=== PATIENT | female | born 1955 | race African-American/Black ===

== ENCOUNTER 2017-05-03 17:36 | Inpatient (IN) | payer MEDICARE ==
[~2017-05-03] VITALS: Ht 165.1 cm; Wt 104.5 kg
--- NOTE | 2017-05-03 18:03 | EKG ---
[address] [address] Test Date: 2017-05-03 Test Time: 17:53:24 Pat Name: SABIHA TOSCANO Department: Room: Gender: F Knot Bumper: KYLAH : 1955 Requested By: JAZZMINE DURÁN Order Number: [id number] Reading MD: Car Marrufo MD Measurements Intervals [place] Rate: 75 P: 36 GA: 150 QRS: 1 QRSD: 82 T: -8 QT: 346 QTc: 389 Interpretive Statements SINUS RHYTHM NON-SPECIFIC ST/T CHANGES Electronically Signed On 05-12-2017 16:06:34 ICE GRINDER by Car Marrufo MD
--- NOTE | 2017-05-03 18:15 | PHYS DOC ---
General Chief Complaint: PSYCH EVALUATION Stated Complaint: PSYCH EVALUATION Time Seen by MD: 18:11 Source: patient, shelter records Exam Limitations: clinical condition Problems: History of Present Illness Initial Comments Patient is a 61-year-old female brought to the ED from [facility] in [place] via facility transport for medical clearance and [facility] admission. Patient has been previously accepted by Dr. Cassidy for major depressive disorder with psychosis. Patient is full code Facility records indicate that the patient has had escalating aggressive behavior with screaming episodes, crying uncontrollably, and refusing medications. She reportedly has history of major depressive disorder and pseudobulbar affect the symptoms have been ongoing for the past 2 weeks and medication adjustments have been ineffective. The patient has received inpatient psychiatric treatment by her primary care physician but there is no reported record of prior [facility] admission. Patient reports that she's been brought here because she doesn't like the medications she's been given and has been refusing to take them. She denies suicidal or homicidal ideation and is for the most part cooperative in the emergency department. She is alert and oriented in general but does have periods of confusion. She becomes impatient and after a time Jorge Luis following instructions continuously wanting to try to get up and get out of bed. Timing/Duration: other Severity: severe Modifying Factors: improves with other Associated Symptoms: denies symptoms Allergies: Coded Allergies: No Known Drug Allergies (Unverified , 05/03/17) Past Medical History Medical History: other (CVA with hemiplegia and hemiparesis, fall risk, dysphasia, hypertension, GERD, vitamin D deficiency, obesity, hyperlipidemia, major depressive disorder, anxiety, pseudo-bulbar affect, dementia, neuropathy, chronic pain, chronic kidney disease, incontinence, menopause, difficulty walking,) Surgical History: other Social History Smoker: non-smoker Alcohol: none Drugs: none Review of Systems Constitutional: denies diaphoresis, denies fever EENTM: denies throat swelling, denies mouth swelling Respiratory: denies cough, denies shortness of breath Cardiovascular: denies chest pain, denies syncope Gastrointestinal: denies abdominal pain, denies vomiting Musculoskeletal: denies joint swelling, denies neck pain Psychiatric/Neurological: see HPI Physical Exam General Appearance: no apparent distress, obese Ear, Nose, Throat: hearing grossly normal, normal ENT inspection Neck: non-tender, supple Respiratory: normal breath sounds, no respiratory distress Cardiovascular: normal peripheral pulses, regular rate, rhythm Gastrointestinal: non tender, soft Back: no CVA tenderness, no vertebral tenderness Neurologic/Psychiatric: alert (with periods of confusion), depressed affect ( no lateralizing neuro deficits denies suicidal or homicidal ideation) Orders, Labs, Meds EKG: Normal sinus rhythm 75 bpm, generalized flattening of the T waves no STEMI changes. Interpreted by Dr. De Jesus. ED blood pressure 150/72 patient denies chest pain dyspnea or other related symptoms. She is medically cleared for [facility] admission with unremarkable labs and urine results, her valproic acid is therapeutic 66. Prolonged ED course due to EMS availability. Departure Time of Disposition: 20:10 Disposition: 09 ADMITTED INPATIENT Diagnosis: MDD with psychosis, CKD Condition: STABLE Additional Instructions: [facility] admission Dr Cassidy is accepting. JAZZMINE DE JESUS DO May 03, 2017 18:15
[2017-05-03 18:46] LABS: BASO % 1 % (0-3); EOS # 0.1 x10^3/uL (0.0-0.7); EOS % 3 % (0-3); HEMATOCRIT 37.4 % (36.0-47.0); HEMOGLOBIN 12.4 g/dL (12.0-15.5); LYMPH # 1.1 x10^3/uL (1.0-4.8); LYMPH % 30 % (24-48); MEAN CORPUSCULAR HEMOGLOBIN 28 pg (25-35); MEAN CORPUSCULAR HGB CONC 33 g/dL (31-37); MEAN CORPUSCULAR VOLUME 84 fL (79-100); MONO # 0.4 x10^3/uL (0.0-1.1); MONO % 11 % (0-9); NEUT # 1.9 x10^3uL (1.8-7.7); NEUT % 55 % (31-73); PLATELET COUNT 168 x10^3/uL (140-400); RED BLOOD COUNT 4.44 x10^6/uL (3.50-5.40); RED CELL DISTRIBUTION WIDTH 14.3 % (11.5-14.5); WHITE BLOOD COUNT 3.5 x10^3/uL (4.0-11.0)
[2017-05-03 18:54] LABS: BACTERIA,URINE 0 /HPF (0-FEW); BILIRUBIN,URINE NEG (NEG); CLARITY,URINE CLEAR; COLOR,URINE YELLOW; GLUCOSE,URINE NEG (NEG); HYALINE CASTS, URINE OCC /HPF; NITRITE,URINE NEG (NEG); RBC,URINE OCC /HPF (0-2); UROBILINOGEN,URINE 1 mg/dL (0.2 mg/dL); WBC,URINE OCC /HPF (0-4)
[2017-05-03 18:58] LABS: VAL ACID 66 mcg/mL (50-100)
[2017-05-03 18:59] LABS: ALBUMIN 3.4 g/dL (3.4-5.0); ALBUMIN/GLOBULIN RATIO 0.8 (1.0-1.7); CALCIUM 9.4 mg/dL (8.5-10.1); CREATININE 1.7 mg/dL (0.6-1.0); GFR 36.7; MAGNESIUM 1.8 mg/dL (1.8-2.4); TOTAL BILIRUBIN 0.2 mg/dL (0.2-1.0); TOTAL PROTEIN 7.6 g/dL (6.4-8.2)
[2017-05-03] MEDS ORDERED: GABA-585 PO (21:10)
[2017-05-03] MEDS ORDERED: CLON0.5T3 PO (21:10)
[2017-05-03] MEDS ORDERED: CHOL10003 PO (21:10)
[2017-05-03] MEDS ORDERED: VALP250S PO (21:10)
[2017-05-03] MEDS ORDERED: DEXT1CAP PO (21:10)
[2017-05-03] MEDS ORDERED: DONE5TAB56 PO (21:10)
[2017-05-03] MEDS ORDERED: ASPI81TA50 PO (21:10)
[2017-05-03] MEDS ORDERED: FURO20TA3 PO (21:10)
[2017-05-03] MEDS ORDERED: LISI-334 PO (21:10)
[2017-05-03] MEDS ORDERED: CALC-380 PO (21:10)
[2017-05-03] MEDS ORDERED: PRAV40TA2 PO (21:10)
[2017-05-03] MEDS ORDERED: HYDR-2867 PO (21:10)
[2017-05-03] MEDS ORDERED: CLOP75TA PO (21:10)
[2017-05-03] MEDS ORDERED: LABE300T PO (21:10)
[2017-05-03] MEDS ORDERED: MIRT15TA3 PO (21:10)
[2017-05-03 23:24] VITALS: BP 160/98
[2017-05-03] MEDS ORDERED: MAGNESIUM HYDROXIDE 2,400 MG/30 ML ORAL.SUSP. PO PRN (23:30)
[2017-05-03] MEDS ORDERED: ACETAMINOPHEN 325 MG TABLET PO PRN (23:30)
[2017-05-03] MEDS ORDERED: METHYL SALICYLATE/MENTHOL TOPICAL OINTMENT 29GM TUBE. TP PRN (23:30)
[2017-05-03] MEDS ORDERED: MAG HYDROX/AL HYDROX/SIMETH 30 ML ORAL.SUSP PO PRN (23:30)
[2017-05-04] MEDS ORDERED: LISINOPRIL 20 MG TABLET PO PRN
[2017-05-04 06:22] VITALS: BP 132/87
[2017-05-04] MEDS: CALCIUM CARB/VIT D3 500/200 TABLET PO SCH ×3 (08:00→16:13)
[2017-05-04] MEDS: ASPIRIN ENTERIC COATED 81 MG TABLET.DR. PO SCH (08:31)
[2017-05-04] MEDS: hydrALAZINE 10 MG TABLET PO SCH ×3 (08:31→19:08)
[2017-05-04] MEDS: DONEPEZIL HCL 5 MG TABLET. PO SCH (08:31)
[2017-05-04] MEDS: CLOPIDOGREL BISULFATE 75 MG TABLET PO SCH (08:31)
[2017-05-04] MEDS: CHOLECALCIFEROL (VITAMIN D3) 1,000 UNIT TABLET PO SCH (08:31)
[2017-05-04] MEDS: FUROSEMIDE 20 MG TABLET PO SCH (08:31)
[2017-05-04] MEDS: VALPROATE ACID 250 MG/5 ML ORAL SOLUTION PO SCH ×2 (08:32→19:08)
[2017-05-04] MEDS: GABAPENTIN 100 MG CAPSULE. PO SCH ×3 (08:32→19:08)
[2017-05-04] MEDS: LABETALOL HCL 100 MG TABLET PO SCH ×3 (08:49→19:11)
[2017-05-04] MEDS: DEXTROMETHORPHAN/QUINIDINE 20/10MG CAPSULE. PO SCH ×2 (08:49→19:10)
[2017-05-04] MEDS ORDERED: clonazePAM 0.5 MG TABLET PO SCH (09:00)
[2017-05-04 15:51] LABS: THYROID STIM HORMONE (TSH) 1.546 uIU/mL (0.358-3.740)
[2017-05-04 16:28] VITALS: BP 119/73
[2017-05-04] MEDS: ATORVASTATIN CALCIUM 10 MG TABLET. PO SCH (19:38)
[2017-05-04] MEDS: MIRTAZAPINE 15 MG TABLET PO SCH (19:39)
--- NOTE | 2017-05-04 21:09 | PDOC ---
Exam Note: Jimmie Note: Please also refer to the separate dictated note~for this date of service dictated separately.~Patient seen individually. Discussed the patient with Nursing staff reviewed the chart.~Reviewed interim history and current functioning. Reviewed vital signs,~Labs/ Radiology~and current medications noted below. Continue current treatment with the changes noted in the dictated addendum note Assessment: Vital Signs: Vital Signs Date Time Temp Pulse Resp B/P (MAP) Pulse Ox O2 Delivery O2 Flow Rate FiO2 05/04/17 19:11 73 119/73 05/04/17 16:28 98.9 18 96 Room Air I&O Intake and Output 05/04/17 07:00 Intake Total 120 ml Output Total 1 ml Balance 119 ml Intake Oral 120 ml Output Stool Total 1 ml # Voids 1 # Bowel Movements 1 Current Medications: Meds: Current Medications Acetaminophen (Tylenol) 650 mg PRN Q6HRS PRN PO PAIN / TEMP; Start 05/03/17 at 23:30 Multi-Ingredient Ointment (Analgesic [place]) 1 anaya PRN QID PRN TP MUSCLE PAIN; Start 05/03/17 at 23:30 Al Hydroxide/Mg Hydroxide (Mylanta Plus Xs) 15 ml PRN AFTMEALHC PRN PO DYSPEPSIA; Start 05/03/17 at 23:30 Magnesium Hydroxide (Milk Of Magnesia) 2,400 mg PRN QHS PRN PO CONSTIPATION; Start 05/03/17 at 23:30 Clonazepam (KlonoPIN) 0.5 mg DAILY PO Last administered on 05/04/17 08:31; Start 05/04/17 at 09:00; Stop 05/04/17 at 18:37; Status DC Donepezil HCl (Aricept) 5 mg DAILY PO Last administered on 05/04/17 08:31; Start 05/04/17 at 09:00 Mirtazapine (Remeron) 15 mg QHS PO Last administered on 05/04/17 19:39; Start 05/04/17 at 21:00 Valproic Acid (Depakene) 250 mg BID PO Last administered on 05/04/17 19:08; Start 05/04/17 at 09:00 Aspirin (Aspirin Enteric Coated) 81 mg DAILY PO Last administered on 05/04/17 08:31; Start 05/04/17 at 09:00 Vitamin D (Vitamin D3) 1,000 unit DAILY PO Last administered on 05/04/17 08:31 ; Start 05/04/17 at 09:00 Clopidogrel Bisulfate (Plavix) 75 mg DAILY PO Last administered on 05/04/17 08 :31; Start 05/04/17 at 09:00 Furosemide (Lasix) 20 mg DAILY PO Last administered on 05/04/17 08:31; Start 05/04/17 at 09:00 Gabapentin (Neurontin) 100 mg TID PO Last administered on 05/04/17 19:08; Start 05/04/17 at 09:00 Hydralazine HCl (Apresoline) 10 mg TID PO Last administered on 05/04/17 19:08 ; Start 05/04/17 at 09:00 Lisinopril (Prinivil) 20 mg PRN DAILY PRN PO HYPERTENSION, SEE COMMENTS; Start 05/04/17 at 00:00 Calcium/Vitamin D (Oscal D 500mg/ 200uts) 1 tab BIDWMEALS PO Last administered on 05/04/17 16:13; Start 05/04/17 at 08:00 Labetalol HCl (Trandate) 300 mg TID PO Last administered on 05/04/17 19:11; Start 05/04/17 at 09:00 Atorvastatin Calcium (Lipitor) 10 mg HS PO Last administered on 05/04/17 19:38 ; Start 05/04/17 at 21:00 Clonazepam (KlonoPIN) 0.25 mg DAILY PO ; Start 05/05/17 at 09:00; Stop 05/07/17 at 13:00 Quetiapine Fumarate (SEROquel) 12.5 mg BID@0900,1400 PO ; Start 05/05/17 at 09: 00 Active Scripts Active Reported Labetalol Hcl 300 Mg Tablet 300 Mg PO TID Hydralazine Hcl 10 Mg Tablet 10 Mg PO TID Gabapentin 100 Mg Capsule 100 Mg PO TID Oystercal-D 500 Mg-400 Unit Tb (Calcium Carbonate/Vitamin D3) 1 Each Tablet 1 Each PO BID Nuedexta 20-10 Mg Capsule (Dextromethorphan Hbr/Quinidine) 1 Each Capsule 1 Each PO BID Depakene (Valproate Sodium) 250 Mg/5 Ml Solution 250 Mg PO BID Pravastatin Sodium 40 Mg Tablet 40 Mg PO DAILY Mirtazapine 15 Mg Tablet 15 Mg PO QHS Lisinopril 20 Mg Tablet 20 Mg PO DAILY PRN Furosemide 20 Mg Tablet 20 Mg PO DAILY Clopidogrel (Clopidogrel Bisulfate) 75 Mg Tablet 75 Mg PO DAILY Clonazepam 0.5 Mg Tablet 0.5 Mg PO DAILY Vitamin D3 (Cholecalciferol (Vitamin D3)) 1,000 Unit Tablet 1,000 Unit PO DAILY Aspir-Low (Aspirin) 81 Mg Tablet.dr 81 Mg PO DAILY Aricept (Donepezil Hcl) 5 Mg Tablet 5 Mg PO DAILY I have reviewed the current psychotropics carefully including drug interactions. Risk benefit ratio favors no change other than as noted in my dictated progress note. Diagnosis: Problems: (1) Major depressive disorder with psychotic features ALESIA INFANTE MD May 04, 2017 21:09
--- NOTE | 2017-05-05 00:20 | HP ---
ADMIT DATE: 05/04/2017 This note covers elements not covered in my initial note of 05/04/2017. IDENTIFYING DATA: The patient is a 61-year-old female referred to us from [facility] by Dr. Keo Morgan, her primary care physician, on account of "escalating behavior. She has been screaming, crying, refusing medications, depressed, also had pseudobulbar affect. She is on Aricept, even though the dementia is not a diagnosis." The patient has been agitated, disruptive, aggressive, verbally abusive at the snf, has failed outpatient psychiatric interventions over the past 2 weeks, referred for inpatient psychiatric stabilization. CHIEF COMPLAINT: "I get too many medications. I wouldn't take it." HISTORY OF PRESENT ILLNESS: The patient has a history of depression, anger, irritability. She has had sleep and appetite changes, and over the past 2 weeks as noted, she has had explosive outbursts, verbally screaming, crying, refusing medications. No active psychotic symptoms, suicidal or homicidal ideation. No clear history of bipolar disorder. PAST PSYCHIATRIC HISTORY: Positive for mild cognitive impairment versus major neurocognitive disorder, early vascular with depression. PAST MEDICAL HISTORY: Status post CVA, chronic kidney disease. FAMILY HISTORY: Noncontributory. DRUG ALLERGIES: Negative. CODE STATUS: Full code. Diet regular. Ambulates with wheelchair 1 or 2 for transfers, has hemiplegia, paresis from CVA. CURRENT PSYCHOTROPICS: Klonopin 0.5 mg daily, Aricept 5 mg a day, Depakene 250 mg b.i.d., Remeron 15 mg at bedtime, Nuedexta 20/10 one p.o. b.i.d. FAMILY HISTORY: Noncontributory. SOCIAL HISTORY: No history of alcohol or drug abuse, physical, sexual or elder abuse. She is not known to be a perpetrator. 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 REVIEW OF SYSTEMS: Ambulation impaired, in wheelchair. No CV, , pulmonary, eye, ENT system symptoms on review. MENTAL STATUS EXAMINATION: Oriented to herself. Insight, judgment, recent memory is impaired. Language function intact. She felt it was 14/05/2000, but knew she arrived here last evening. Attention span short. Language function intact. Mood and affect anxious, labile, somewhat impulsive. LABORATORY DATA: Reviewed. IMPRESSION: Major depressive disorder, recurrent, impulse control disorder, anxiety disorder, unspecified, mild cognitive impairment versus major neurocognitive disorder, early vascular with depression. Rest diagnoses as above. PLAN: Admit to geropsychiatry unit at [facility]. I will see the patient daily individually from a psychiatric standpoint. Medical followup per Dr. Medina/Dr. Gerard. Taper and stop the Klonopin down to 0.25 mg once a day for 2 days and stop it. Start her on Seroquel 12.5 mg 9:00 a.m. and 2:00 p.m. as a mood stabilizer. Continue Depakene 250 b.i.d., level is therapeutic at 66. Maintain Aricept 5 mg a day, Nuedexta 20/10 b.i.d., Remeron 15 mg at bedtime. Make further adjustments as clinically indicated. ALESIA INFANTE MD DR: VELIA/lico JOB#: [id number] / [id number]
--- NOTE | 2017-05-05 04:57 | CONS ---
DATE OF CONSULTATION: 05/04/2017 REASON FOR CONSULTATION: Medical management. HISTORY OF PRESENT ILLNESS: The patient is a 61-year-old -[place] female patient, a resident at [facility] in [place] and who was basically evaluated in the Emergency Room of [facility] for medical clearance and was admitted to [facility] for inpatient psychiatric stabilization. She apparently has major depressive disorder with psychosis and according to the nursing staff at the facility, the patient has been escalating aggressive behavior with screaming episodes, crying uncontrollably and refusing medication. She reportedly has history of major depressive disorder and pseudobulbar palsy with pseudobulbar affect. The symptoms have been ongoing for the past 2 weeks and medication adjustments have been ineffective. She apparently was seen by her primary care physician without much improvement and therefore she was admitted to this facility for inpatient psychiatric stabilization. When I questioned her, she stated that she is getting too many medication and that makes her very dizzy. PAST MEDICAL HISTORY: Significant for hypertension, left middle cerebral artery territory infarct with right-sided hemiplegia, gastroesophageal reflux disease, vitamin D deficiency, obesity, hyperlipidemia, pseudobulbar affect, chronic kidney disease, chronic pain syndrome, difficulty walking. PAST SURGICAL HISTORY: Significant for bilateral total knee arthroplasty. PAST PSYCHIATRIC HISTORY: Significant for major depressive disorder, anxiety, dementia and pseudobulbar affect. FAMILY HISTORY: Unremarkable. SOCIAL HISTORY: She lives according to her I am not sure how reliable this is with her in the same [facility] facility. She does not smoke, drink alcohol or use recreational drugs. 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 ALLERGIES: She has no known drug allergies. MEDICATIONS: She is currently on the following medications: Aspirin 81 mg once a day, calcium carbonate with vitamin D one tablet twice a day, cholecalciferol 1000 international units once a day, clonazepam 0.5 mg daily, Plavix 75 mg once a day, dextromethorphan/quinidine for Nuedexta one capsule twice a day, Aricept 5 mg daily, furosemide 20 mg once a day, gabapentin 100 mg 3 times a day. She is on hydralazine 10 mg 3 times a day, labetalol 300 mg 3 times a day, lisinopril 20 mg once a day, mirtazapine 15 mg at bedtime, pravastatin 40 mg at bedtime and valproic acid 250 mg twice a day. PHYSICAL EXAMINATION: GENERAL: When I examined her, the patient was sitting comfortably in her wheelchair, in no apparent respiratory distress, no pallor, jaundice or cyanosis. No lymphadenopathy, no thyromegaly. No jugular venous distension. Mild bilateral limb edema. VITAL SIGNS: Her heart rate was 72, blood pressure was 114/76, temperature was 97.6, respiratory rate 20 and oxygen saturation was 94% on room air. HEENT: Showed normocephalic, atraumatic. NECK: Supple. HEART: Showed normal first and second heart sounds. No gallop, rub or murmur. CHEST: Clear to auscultation. No crepitation or rhonchi. ABDOMEN: Distended, soft, nontender. NEUROLOGIC: She was awake, alert, responding appropriately. Cranial nerves intact. She has right-sided hemiparesis. She is mostly wheelchair bound. LABORATORY DATA: On admission showed serum sodium of 145, potassium 4, chloride 108, bicarbonate 30, anion gap of 7, BUN 30, creatinine 1.7. Estimated GFR was 36.7 mL per minute. Her glucose was 83, calcium was 9.4, magnesium was 1.8. Total bilirubin, AST, ALT, alkaline phosphatase were normal. Total protein was 7.6, albumin 3.4. Her white cell count was 3500, hemoglobin 12.4, hematocrit of 37.4, MCV 84 and platelet count of 168,000. Her urinalysis showed the urine was yellow, clear with a pH of 5.5, specific gravity of 1.025. The urine was negative for protein, glucose, ketones, blood, nitrite and leukocyte esterase. There was occasional rbc's, occasional wbc's, no bacteria. Her urine toxicology screen showed that her valproic acid was 66 mcg, which is well within therapeutic range. IMPRESSION: In summary, this is a 61-year-old -[place] female patient with multiple medical problems including hypertension, hyperlipidemia, pseudobulbar affect. She is also known to have chronic kidney disease, peripheral neuropathy, difficulty walking. She has right-sided hemiparesis. She is mostly bedbound, wheelchair bound. She was apparently admitted as she started having escalating aggressive behavior with screaming episodes, crying uncontrollably and refusing medication and she is known to have major depressive disorder with pseudobulbar affect and these symptoms has been going on for the last 2 weeks despite adjustment of her medication. From a medical point of view, she seemed to be stable and we could adjust some medication and eliminate some of them if necessary if that is the reason for her aggressive behavior and refusal of medications. Thank you, Dr. Cassidy for allowing me to participate in the care of this patient. JENNIFER SCHRADER MD DR: GUILLERMO/lico JOB#: [id number] / [id number]
[2017-05-05 05:49] VITALS: BP 168/63
[2017-05-05] MEDS: CLOPIDOGREL BISULFATE 75 MG TABLET PO SCH (08:47)
[2017-05-05] MEDS: CALCIUM CARB/VIT D3 500/200 TABLET PO SCH ×2 (08:47→13:32)
[2017-05-05] MEDS: DONEPEZIL HCL 5 MG TABLET. PO SCH (08:47)
[2017-05-05] MEDS: ASPIRIN ENTERIC COATED 81 MG TABLET.DR. PO SCH (08:47)
[2017-05-05] MEDS: CHOLECALCIFEROL (VITAMIN D3) 1,000 UNIT TABLET PO SCH (08:47)
[2017-05-05] MEDS: FUROSEMIDE 20 MG TABLET PO SCH (08:47)
[2017-05-05] MEDS: GABAPENTIN 100 MG CAPSULE. PO SCH ×3 (08:47→19:37)
[2017-05-05] MEDS: hydrALAZINE 10 MG TABLET PO SCH ×3 (08:47→19:37)
[2017-05-05] MEDS: VALPROATE ACID 250 MG/5 ML ORAL SOLUTION PO SCH ×2 (08:48→19:36)
[2017-05-05] MEDS: QUEtiapine 25 MG TABLET. PO SCH ×2 (08:49→13:32)
[2017-05-05] MEDS: LABETALOL HCL 100 MG TABLET PO SCH ×3 (08:49→19:37)
[2017-05-05] MEDS: DEXTROMETHORPHAN/QUINIDINE 20/10MG CAPSULE. PO SCH ×2 (08:49→19:38)
[2017-05-05] MEDS: clonazePAM 0.5 MG TABLET PO SCH (08:53)
[2017-05-05 16:32] VITALS: BP 130/64
[2017-05-05 19:26] VITALS: BP 133/79
[2017-05-05] MEDS: ATORVASTATIN CALCIUM 10 MG TABLET. PO SCH (19:37)
[2017-05-05] MEDS: MIRTAZAPINE 15 MG TABLET PO SCH (19:38)
--- NOTE | 2017-05-05 19:54 | PDOC ---
Exam Note: Jimmie Note: Please also refer to the separate dictated note~for this date of service dictated separately.~Patient seen individually. Discussed the patient with Nursing staff reviewed the chart.~Reviewed interim history and current functioning. Reviewed vital signs,~Labs/ Radiology~and current medications noted below. Continue current treatment with the changes noted in the dictated addendum note Assessment: Vital Signs: Vital Signs Date Time Temp Pulse Resp B/P (MAP) Pulse Ox O2 Delivery O2 Flow Rate FiO2 05/05/17 19:37 86 133/79 05/05/17 19:26 97 05/05/17 16:32 97.2 16 05/05/17 05:49 Room Air I&O Intake and Output 05/05/17 07:00 Intake Total 1440 ml Balance 1440 ml Intake Oral 1440 ml # Voids 1 # Bowel Movements 1 Current Medications: Meds: Current Medications Acetaminophen (Tylenol) 650 mg PRN Q6HRS PRN PO PAIN / TEMP; Start 05/03/17 at 23:30 Multi-Ingredient Ointment (Analgesic [place]) 1 anaya PRN QID PRN TP MUSCLE PAIN; Start 05/03/17 at 23:30 Al Hydroxide/Mg Hydroxide (Mylanta Plus Xs) 15 ml PRN AFTMEALHC PRN PO DYSPEPSIA; Start 05/03/17 at 23:30 Magnesium Hydroxide (Milk Of Magnesia) 2,400 mg PRN QHS PRN PO CONSTIPATION; Start 05/03/17 at 23:30 Clonazepam (KlonoPIN) 0.5 mg DAILY PO Last administered on 05/04/17 08:31; Start 05/04/17 at 09:00; Stop 05/04/17 at 18:37; Status DC Donepezil HCl (Aricept) 5 mg DAILY PO Last administered on 05/05/17 08:47; Start 05/04/17 at 09:00 Mirtazapine (Remeron) 15 mg QHS PO Last administered on 05/05/17 19:38; Start 05/04/17 at 21:00 Valproic Acid (Depakene) 250 mg BID PO Last administered on 05/05/17 19:36; Start 05/04/17 at 09:00 Aspirin (Aspirin Enteric Coated) 81 mg DAILY PO Last administered on 05/05/17 08:47; Start 05/04/17 at 09:00 Vitamin D (Vitamin D3) 1,000 unit DAILY PO Last administered on 05/05/17 08:47 ; Start 05/04/17 at 09:00 Clopidogrel Bisulfate (Plavix) 75 mg DAILY PO Last administered on 05/05/17 08 :47; Start 05/04/17 at 09:00 Furosemide (Lasix) 20 mg DAILY PO Last administered on 05/05/17 08:47; Start 05/04/17 at 09:00 Gabapentin (Neurontin) 100 mg TID PO Last administered on 05/05/17 19:37; Start 05/04/17 at 09:00 Hydralazine HCl (Apresoline) 10 mg TID PO Last administered on 05/05/17 19:37 ; Start 05/04/17 at 09:00 Lisinopril (Prinivil) 20 mg PRN DAILY PRN PO HYPERTENSION, SEE COMMENTS; Start 05/04/17 at 00:00 Calcium/Vitamin D (Oscal D 500mg/ 200uts) 1 tab BIDWMEALS PO Last administered on 05/05/17 13:32; Start 05/04/17 at 08:00 Labetalol HCl (Trandate) 300 mg TID PO Last administered on 05/05/17 19:37; Start 05/04/17 at 09:00 Atorvastatin Calcium (Lipitor) 10 mg HS PO Last administered on 05/05/17 19:37 ; Start 05/04/17 at 21:00 Clonazepam (KlonoPIN) 0.25 mg DAILY PO Last administered on 05/05/17 08:53; Start 05/05/17 at 09:00; Stop 05/07/17 at 13:00 Quetiapine Fumarate (SEROquel) 12.5 mg BID@0900,1400 PO Last administered on 13:32; Start 05/05/17 at 09:00 Active Scripts Active Reported Labetalol Hcl 300 Mg Tablet 300 Mg PO TID Hydralazine Hcl 10 Mg Tablet 10 Mg PO TID Gabapentin 100 Mg Capsule 100 Mg PO TID Oystercal-D 500 Mg-400 Unit Tb (Calcium Carbonate/Vitamin D3) 1 Each Tablet 1 Each PO BID Nuedexta 20-10 Mg Capsule (Dextromethorphan Hbr/Quinidine) 1 Each Capsule 1 Each PO BID Depakene (Valproate Sodium) 250 Mg/5 Ml Solution 250 Mg PO BID Pravastatin Sodium 40 Mg Tablet 40 Mg PO DAILY Mirtazapine 15 Mg Tablet 15 Mg PO QHS Lisinopril 20 Mg Tablet 20 Mg PO DAILY PRN Furosemide 20 Mg Tablet 20 Mg PO DAILY Clopidogrel (Clopidogrel Bisulfate) 75 Mg Tablet 75 Mg PO DAILY Clonazepam 0.5 Mg Tablet 0.5 Mg PO DAILY Vitamin D3 (Cholecalciferol (Vitamin D3)) 1,000 Unit Tablet 1,000 Unit PO DAILY Aspir-Low (Aspirin) 81 Mg Tablet.dr 81 Mg PO DAILY Aricept (Donepezil Hcl) 5 Mg Tablet 5 Mg PO DAILY I have reviewed the current psychotropics carefully including drug interactions. Risk benefit ratio favors no change other than as noted in my dictated progress note. Diagnosis: Problems: (1) Chronic kidney disease (2) Major depressive disorder with psychotic features ALESIA INFANTE MD May 05, 2017 19:54
[2017-05-06 05:46] VITALS: BP 102/68
[2017-05-06] MEDS: CHOLECALCIFEROL (VITAMIN D3) 1,000 UNIT TABLET PO SCH (08:32)
[2017-05-06] MEDS: FUROSEMIDE 20 MG TABLET PO SCH (08:33)
[2017-05-06] MEDS: QUEtiapine 25 MG TABLET. PO SCH ×2 (08:33→16:17)
[2017-05-06] MEDS: CALCIUM CARB/VIT D3 500/200 TABLET PO SCH ×2 (08:34→16:18)
[2017-05-06] MEDS: DEXTROMETHORPHAN/QUINIDINE 20/10MG CAPSULE. PO SCH ×2 (08:34→19:20)
[2017-05-06] MEDS: ASPIRIN ENTERIC COATED 81 MG TABLET.DR. PO SCH (08:34)
[2017-05-06] MEDS: CLOPIDOGREL BISULFATE 75 MG TABLET PO SCH (08:34)
[2017-05-06] MEDS: VALPROATE ACID 250 MG/5 ML ORAL SOLUTION PO SCH ×2 (08:34→19:19)
[2017-05-06] MEDS: DONEPEZIL HCL 5 MG TABLET. PO SCH (08:34)
[2017-05-06] MEDS: GABAPENTIN 100 MG CAPSULE. PO SCH ×3 (08:34→19:21)
[2017-05-06] MEDS: clonazePAM 0.5 MG TABLET PO SCH (08:35)
[2017-05-06] MEDS: LABETALOL HCL 100 MG TABLET PO SCH ×3 (08:37→19:20)
[2017-05-06] MEDS: hydrALAZINE 10 MG TABLET PO SCH ×3 (08:37→19:21)
[2017-05-06 16:02] VITALS: BP 124/72
[2017-05-06] MEDS: ATORVASTATIN CALCIUM 10 MG TABLET. PO SCH (19:20)
[2017-05-06] MEDS: MIRTAZAPINE 15 MG TABLET PO SCH (19:21)
--- NOTE | 2017-05-06 19:49 | PDOC ---
Exam Note: Jimmie Note: Please also refer to the separate dictated note~for this date of service dictated separately.~Patient seen individually. Discussed the patient with Nursing staff reviewed the chart.~Reviewed interim history and current functioning. Reviewed vital signs,~Labs/ Radiology~and current medications noted below. Continue current treatment with the changes noted in the dictated addendum note Assessment: Vital Signs: Vital Signs Date Time Temp Pulse Resp B/P (MAP) Pulse Ox O2 Delivery O2 Flow Rate FiO2 05/06/17 19:21 83 146/71 05/06/17 16:02 98.0 20 96 05/05/17 05:49 Room Air I&O Intake and Output 05/06/17 07:00 Intake Total 660 ml Balance 660 ml Intake Oral 660 ml # Voids 1 # Bowel Movements 1 Current Medications: Meds: Current Medications Acetaminophen (Tylenol) 650 mg PRN Q6HRS PRN PO PAIN / TEMP; Start 05/03/17 at 23:30 Multi-Ingredient Ointment (Analgesic [place]) 1 anaya PRN QID PRN TP MUSCLE PAIN; Start 05/03/17 at 23:30 Al Hydroxide/Mg Hydroxide (Mylanta Plus Xs) 15 ml PRN AFTMEALHC PRN PO DYSPEPSIA; Start 05/03/17 at 23:30 Magnesium Hydroxide (Milk Of Magnesia) 2,400 mg PRN QHS PRN PO CONSTIPATION; Start 05/03/17 at 23:30 Clonazepam (KlonoPIN) 0.5 mg DAILY PO Last administered on 05/04/17 08:31; Start 05/04/17 at 09:00; Stop 05/04/17 at 18:37; Status DC Donepezil HCl (Aricept) 5 mg DAILY PO Last administered on 05/06/17 08:34; Start 05/04/17 at 09:00 Mirtazapine (Remeron) 15 mg QHS PO Last administered on 05/06/17 19:21; Start 05/04/17 at 21:00 Valproic Acid (Depakene) 250 mg BID PO Last administered on 05/06/17 19:19; Start 05/04/17 at 09:00 Aspirin (Aspirin Enteric Coated) 81 mg DAILY PO Last administered on 05/06/17 08:34; Start 05/04/17 at 09:00 Vitamin D (Vitamin D3) 1,000 unit DAILY PO Last administered on 05/06/17 08:32 ; Start 05/04/17 at 09:00 Clopidogrel Bisulfate (Plavix) 75 mg DAILY PO Last administered on 05/06/17 08 :34; Start 05/04/17 at 09:00 Furosemide (Lasix) 20 mg DAILY PO Last administered on 05/06/17 08:33; Start 05/04/17 at 09:00 Gabapentin (Neurontin) 100 mg TID PO Last administered on 05/06/17 19:21; Start 05/04/17 at 09:00 Hydralazine HCl (Apresoline) 10 mg TID PO Last administered on 05/06/17 19:21 ; Start 05/04/17 at 09:00 Lisinopril (Prinivil) 20 mg PRN DAILY PRN PO HYPERTENSION, SEE COMMENTS; Start 05/04/17 at 00:00 Calcium/Vitamin D (Oscal D 500mg/ 200uts) 1 tab BIDWMEALS PO Last administered on 05/06/17 16:18; Start 05/04/17 at 08:00 Labetalol HCl (Trandate) 300 mg TID PO Last administered on 05/06/17 19:20; Start 05/04/17 at 09:00 Atorvastatin Calcium (Lipitor) 10 mg HS PO Last administered on 05/06/17 19:20 ; Start 05/04/17 at 21:00 Clonazepam (KlonoPIN) 0.25 mg DAILY PO Last administered on 05/06/17 08:35; Start 05/05/17 at 09:00; Stop 05/07/17 at 13:00 Quetiapine Fumarate (SEROquel) 12.5 mg BID@0900,1400 PO Last administered on 16:17; Start 05/05/17 at 09:00 Active Scripts Active Reported Labetalol Hcl 300 Mg Tablet 300 Mg PO TID Hydralazine Hcl 10 Mg Tablet 10 Mg PO TID Gabapentin 100 Mg Capsule 100 Mg PO TID Oystercal-D 500 Mg-400 Unit Tb (Calcium Carbonate/Vitamin D3) 1 Each Tablet 1 Each PO BID Nuedexta 20-10 Mg Capsule (Dextromethorphan Hbr/Quinidine) 1 Each Capsule 1 Each PO BID Depakene (Valproate Sodium) 250 Mg/5 Ml Solution 250 Mg PO BID Pravastatin Sodium 40 Mg Tablet 40 Mg PO DAILY Mirtazapine 15 Mg Tablet 15 Mg PO QHS Lisinopril 20 Mg Tablet 20 Mg PO DAILY PRN Furosemide 20 Mg Tablet 20 Mg PO DAILY Clopidogrel (Clopidogrel Bisulfate) 75 Mg Tablet 75 Mg PO DAILY Clonazepam 0.5 Mg Tablet 0.5 Mg PO DAILY Vitamin D3 (Cholecalciferol (Vitamin D3)) 1,000 Unit Tablet 1,000 Unit PO DAILY Aspir-Low (Aspirin) 81 Mg Tablet.dr 81 Mg PO DAILY Aricept (Donepezil Hcl) 5 Mg Tablet 5 Mg PO DAILY I have reviewed the current psychotropics carefully including drug interactions. Risk benefit ratio favors no change other than as noted in my dictated progress note. Diagnosis: Problems: (1) Major depressive disorder with psychotic features (2) Chronic kidney disease ALESIA INFANTE MD May 06, 2017 19:49
--- NOTE | 2017-05-07 04:05 | PN ---
DATE: 05/05/2017 This late entry 05/05/2017 covers elements not covered in my initial note 05/05/2017. Met with the patient evening of 05/05/2017. SUBJECTIVE: The patient was staffed at a treatment team meeting with the entire team morning of 05/05/2017. She remains somewhat withdrawn, irritable at times, labile, anxious, but not disruptive. REVIEW OF SYSTEMS: Ambulation impaired, in wheelchair. No CV, , pulmonary, eye, ENT system symptoms on review. MENTAL STATUS EXAM: Oriented to herself and situation. Speech is coherent, has some latency. Abstraction fair, computation impaired, language function intact. Mood and affect withdrawn, depressed. LABORATORY DATA: Reviewed. 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 Rest unchanged. PLAN: Continue current psychotropics mentioned in my initial note. Klonopin is being tapered and she has been started on Seroquel, which we will adjust gradually. ALESIA INFANTE MD DR: VELIA/lico JOB#: [id number] / [id number]
[2017-05-07 05:54] VITALS: BP 156/64
[2017-05-07] MEDS: CALCIUM CARB/VIT D3 500/200 TABLET PO SCH ×2 (09:21→17:29)
[2017-05-07] MEDS: ASPIRIN ENTERIC COATED 81 MG TABLET.DR. PO SCH (09:22)
[2017-05-07] MEDS: hydrALAZINE 10 MG TABLET PO SCH ×3 (09:22→20:02)
[2017-05-07] MEDS: DONEPEZIL HCL 5 MG TABLET. PO SCH (09:22)
[2017-05-07] MEDS: VALPROATE ACID 250 MG/5 ML ORAL SOLUTION PO SCH ×2 (09:23→20:03)
[2017-05-07] MEDS: clonazePAM 0.5 MG TABLET PO SCH (09:25)
[2017-05-07] MEDS: FUROSEMIDE 20 MG TABLET PO SCH (09:26)
[2017-05-07] MEDS: DEXTROMETHORPHAN/QUINIDINE 20/10MG CAPSULE. PO SCH ×2 (09:26→20:03)
[2017-05-07] MEDS: GABAPENTIN 100 MG CAPSULE. PO SCH ×3 (09:26→20:02)
[2017-05-07] MEDS: CLOPIDOGREL BISULFATE 75 MG TABLET PO SCH (09:26)
[2017-05-07] MEDS: QUEtiapine 25 MG TABLET. PO SCH ×2 (09:26→13:56)
[2017-05-07] MEDS: CHOLECALCIFEROL (VITAMIN D3) 1,000 UNIT TABLET PO SCH (09:28)
[2017-05-07] MEDS: LABETALOL HCL 100 MG TABLET PO SCH ×3 (09:28→20:03)
[2017-05-07 13:41] VITALS: BP 134/83
[2017-05-07 16:19] VITALS: BP 130/77
[2017-05-07] MEDS: ATORVASTATIN CALCIUM 10 MG TABLET. PO SCH (20:02)
[2017-05-07] MEDS: MIRTAZAPINE 15 MG TABLET PO SCH (20:02)
--- NOTE | 2017-05-07 21:32 | PDOC ---
Exam Note: Jimmie Note: Please also refer to the separate dictated note~for this date of service dictated separately.~Patient seen individually. Discussed the patient with Nursing staff reviewed the chart.~Reviewed interim history and current functioning. Reviewed vital signs,~Labs/ Radiology~and current medications noted below. Continue current treatment with the changes noted in the dictated addendum note Assessment: Vital Signs: Vital Signs Date Time Temp Pulse Resp B/P (MAP) Pulse Ox O2 Delivery O2 Flow Rate FiO2 05/07/17 20:03 82 130/77 05/07/17 16:19 98.7 18 97 Room Air I&O Intake and Output 05/07/17 07:00 Intake Total 1560 ml Balance 1560 ml Intake Oral 1560 ml # Voids 1 # Bowel Movements 1 Current Medications: Meds: Current Medications Acetaminophen (Tylenol) 650 mg PRN Q6HRS PRN PO PAIN / TEMP; Start 05/03/17 at 23:30 Multi-Ingredient Ointment (Analgesic [place]) 1 anaya PRN QID PRN TP MUSCLE PAIN; Start 05/03/17 at 23:30 Al Hydroxide/Mg Hydroxide (Mylanta Plus Xs) 15 ml PRN AFTMEALHC PRN PO DYSPEPSIA; Start 05/03/17 at 23:30 Magnesium Hydroxide (Milk Of Magnesia) 2,400 mg PRN QHS PRN PO CONSTIPATION; Start 05/03/17 at 23:30 Clonazepam (KlonoPIN) 0.5 mg DAILY PO Last administered on 05/04/17 08:31; Start 05/04/17 at 09:00; Stop 05/04/17 at 18:37; Status DC Donepezil HCl (Aricept) 5 mg DAILY PO Last administered on 05/07/17 09:22; Start 05/04/17 at 09:00; Stop 05/07/17 at 19:27; Status DC Mirtazapine (Remeron) 15 mg QHS PO Last administered on 05/07/17 20:02; Start 05/04/17 at 21:00 Valproic Acid (Depakene) 250 mg BID PO Last administered on 05/07/17 20:03; Start 05/04/17 at 09:00 Aspirin (Aspirin Enteric Coated) 81 mg DAILY PO Last administered on 05/07/17 09:22; Start 05/04/17 at 09:00 Vitamin D (Vitamin D3) 1,000 unit DAILY PO Last administered on 05/07/17 09:28 ; Start 05/04/17 at 09:00 Clopidogrel Bisulfate (Plavix) 75 mg DAILY PO Last administered on 05/07/17 09 :26; Start 05/04/17 at 09:00 Furosemide (Lasix) 20 mg DAILY PO Last administered on 05/07/17 09:26; Start 05/04/17 at 09:00 Gabapentin (Neurontin) 100 mg TID PO Last administered on 05/07/17 20:02; Start 05/04/17 at 09:00 Hydralazine HCl (Apresoline) 10 mg TID PO Last administered on 05/07/17 20:02 ; Start 05/04/17 at 09:00 Lisinopril (Prinivil) 20 mg PRN DAILY PRN PO HYPERTENSION, SEE COMMENTS; Start 05/04/17 at 00:00 Calcium/Vitamin D (Oscal D 500mg/ 200uts) 1 tab BIDWMEALS PO Last administered on 05/07/17 17:29; Start 05/04/17 at 08:00 Labetalol HCl (Trandate) 300 mg TID PO Last administered on 05/07/17 20:03; Start 05/04/17 at 09:00 Atorvastatin Calcium (Lipitor) 10 mg HS PO Last administered on 05/07/17 20:02 ; Start 05/04/17 at 21:00 Clonazepam (KlonoPIN) 0.25 mg DAILY PO Last administered on 05/07/17 09:25; Start 05/05/17 at 09:00; Stop 05/07/17 at 13:00; Status DC Quetiapine Fumarate (SEROquel) 12.5 mg BID@0900,1400 PO Last administered on 13:56; Start 05/05/17 at 09:00; Stop 05/08/17 at 08:00 Donepezil HCl (Aricept) 10 mg DAILY PO ; Start 05/08/17 at 09:00 Quetiapine Fumarate (SEROquel) 12.5 mg TID@0900,1400,1700 PO ; Start 05/08/17 at 09:00 Active Scripts Active Reported Labetalol Hcl 300 Mg Tablet 300 Mg PO TID Hydralazine Hcl 10 Mg Tablet 10 Mg PO TID Gabapentin 100 Mg Capsule 100 Mg PO TID Oystercal-D 500 Mg-400 Unit Tb (Calcium Carbonate/Vitamin D3) 1 Each Tablet 1 Each PO BID Nuedexta 20-10 Mg Capsule (Dextromethorphan Hbr/Quinidine) 1 Each Capsule 1 Each PO BID Depakene (Valproate Sodium) 250 Mg/5 Ml Solution 250 Mg PO BID Pravastatin Sodium 40 Mg Tablet 40 Mg PO DAILY Mirtazapine 15 Mg Tablet 15 Mg PO QHS Lisinopril 20 Mg Tablet 20 Mg PO DAILY PRN Furosemide 20 Mg Tablet 20 Mg PO DAILY Clopidogrel (Clopidogrel Bisulfate) 75 Mg Tablet 75 Mg PO DAILY Clonazepam 0.5 Mg Tablet 0.5 Mg PO DAILY Vitamin D3 (Cholecalciferol (Vitamin D3)) 1,000 Unit Tablet 1,000 Unit PO DAILY Aspir-Low (Aspirin) 81 Mg Tablet. 81 Mg PO DAILY Aricept (Donepezil Hcl) 5 Mg Tablet 5 Mg PO DAILY I have reviewed the current psychotropics carefully including drug interactions. Risk benefit ratio favors no change other than as noted in my dictated progress note. Diagnosis: Problems: (1) Major depressive disorder with psychotic features ALESIA INFANTE MD May 07, 2017 21:32
[2017-05-08 06:06] VITALS: BP 167/85
[2017-05-08] MEDS: CALCIUM CARB/VIT D3 500/200 TABLET PO SCH ×2 (09:23→14:37)
[2017-05-08] MEDS: hydrALAZINE 10 MG TABLET PO SCH ×3 (09:25→20:25)
[2017-05-08] MEDS: DONEPEZIL HCL 10 MG TABLET PO SCH (09:26)
[2017-05-08] MEDS: ASPIRIN ENTERIC COATED 81 MG TABLET.DR. PO SCH (09:26)
[2017-05-08] MEDS: FUROSEMIDE 20 MG TABLET PO SCH (09:27)
[2017-05-08] MEDS: VALPROATE ACID 250 MG/5 ML ORAL SOLUTION PO SCH ×2 (09:27→20:25)
[2017-05-08] MEDS: CLOPIDOGREL BISULFATE 75 MG TABLET PO SCH (09:27)
[2017-05-08] MEDS: GABAPENTIN 100 MG CAPSULE. PO SCH ×3 (09:27→20:25)
[2017-05-08] MEDS: QUEtiapine 25 MG TABLET. PO SCH ×3 (09:27→17:13)
[2017-05-08] MEDS: DEXTROMETHORPHAN/QUINIDINE 20/10MG CAPSULE. PO SCH ×2 (09:27→20:25)
[2017-05-08] MEDS: CHOLECALCIFEROL (VITAMIN D3) 1,000 UNIT TABLET PO SCH (09:29)
[2017-05-08] MEDS: LABETALOL HCL 100 MG TABLET PO SCH ×3 (09:33→20:26)
[2017-05-08 14:32] VITALS: BP 147/79
--- NOTE | 2017-05-08 15:31 | PN ---
DATE: 05/07/2017 This is a late entry for 05/07/2017 and covers the elements not covered in my initial note of 05/07/2017. SUBJECTIVE: I met with the patient in the evening of 05/07/2017. The patient has been anxious, somewhat repetitive, depressed though at times minimizes this. REVIEW OF SYSTEMS: Ambulation impaired. No CV, , pulmonary, eye, ENT system symptoms on review. Reliability varies. MENTAL STATUS EXAM: Oriented to herself, situation. Speech coherent, has some latency. Abstraction fair, computation impaired, language function intact, mood and affect is depressed. No active suicidal or homicidal ideation. LABORATORY DATA: Reviewed. IMPRESSION: Unchanged from initial note. PLAN: Continue current psychotropics. She was screaming at times earlier in the day, so we will increase the Seroquel from 12.5 mg b.i.d. to 12.5 mg at 9:00 a.m., 1:00 p.m., 5:00 p.m.; and Aricept from 5 mg a day to 10 mg a day, valproic acid level therapeutic at 66 on Depakene 250 b.i.d. Maintain, Nuedexta, Remeron. Klonopin was stopped on 05/07/2017; starting 05/08/2017, we will start her on Zoloft 50 mg a day for her depressive symptoms, which relate to her irritability. MAN Marcus INFANTE MD DR: VELIA/lico JOB#: [id number] / [id number]
--- NOTE | 2017-05-08 15:43 | PN ---
DATE: 05/06/2017 PSYCHIATRIC PROGRESS NOTE This is a late entry 05/06/2017, covers elements not covered in my initial note 05/06/2017. Met with the patient evening of 05/06/2017. The patient is compliant with her medication, but resents and feels she has too many medications processes with her. She has to see the medications being taken out from the packets before she takes it. Less withdrawn on 05/06/2017. REVIEW OF SYSTEMS: Ambulation impaired. No CV, , pulmonary, eye system symptoms on review. MENTAL STATUS EXAM: Oriented to herself and situations. Short term memory is impaired. Speech moderate latency, coherent. Abstraction fair, computation impaired, language function intact. Mood and affect somewhat withdrawn, depressed. LABORATORY DATA: Reviewed. IMPRESSION: Unchanged from initial note. PLAN: Continue psychotropics mentioned in my initial note. Adjust further as clinically indicated. MAN Marcus INFANTE MD DR: VELIA/lico JOB#: [id number] / [id number]
[2017-05-08 16:15] VITALS: BP 151/84
--- NOTE | 2017-05-08 19:54 | PDOC ---
Exam Note: Jimmie Note: Please also refer to the separate dictated note~for this date of service dictated separately.~Patient seen individually. Discussed the patient with Nursing staff reviewed the chart.~Reviewed interim history and current functioning. Reviewed vital signs,~Labs/ Radiology~and current medications noted below. Continue current treatment with the changes noted in the dictated addendum note Assessment: Vital Signs: Vital Signs Date Time Temp Pulse Resp B/P (MAP) Pulse Ox O2 Delivery O2 Flow Rate FiO2 05/08/17 16:15 97.5 73 20 151/84 (106) 97 05/07/17 16:19 Room Air I&O Intake and Output 05/08/17 07:00 Intake Total 840 ml Balance 840 ml Intake Oral 840 ml # Voids 1 Current Medications: Meds: Current Medications Acetaminophen (Tylenol) 650 mg PRN Q6HRS PRN PO PAIN / TEMP; Start 05/03/17 at 23:30 Multi-Ingredient Ointment (Analgesic [place]) 1 anaya PRN QID PRN TP MUSCLE PAIN; Start 05/03/17 at 23:30 Al Hydroxide/Mg Hydroxide (Mylanta Plus Xs) 15 ml PRN AFTMEALHC PRN PO DYSPEPSIA; Start 05/03/17 at 23:30 Magnesium Hydroxide (Milk Of Magnesia) 2,400 mg PRN QHS PRN PO CONSTIPATION; Start 05/03/17 at 23:30 Clonazepam (KlonoPIN) 0.5 mg DAILY PO Last administered on 05/04/17 08:31; Start 05/04/17 at 09:00; Stop 05/04/17 at 18:37; Status DC Donepezil HCl (Aricept) 5 mg DAILY PO Last administered on 05/07/17 09:22; Start 05/04/17 at 09:00; Stop 05/07/17 at 19:27; Status DC Mirtazapine (Remeron) 15 mg QHS PO Last administered on 05/07/17 20:02; Start 05/04/17 at 21:00 Valproic Acid (Depakene) 250 mg BID PO Last administered on 05/08/17 09:27; Start 05/04/17 at 09:00 Aspirin (Aspirin Enteric Coated) 81 mg DAILY PO Last administered on 09:26; Start 05/04/17 at 09:00 Vitamin D (Vitamin D3) 1,000 unit DAILY PO Last administered on 05/08/17 09: 29; Start 05/04/17 at 09:00 Clopidogrel Bisulfate (Plavix) 75 mg DAILY PO Last administered on 05/08/17 09:27; Start 05/04/17 at 09:00 Furosemide (Lasix) 20 mg DAILY PO Last administered on 05/08/17 09:27; Start 05/04/17 at 09:00 Gabapentin (Neurontin) 100 mg TID PO Last administered on 05/08/17 14:36; Start 05/04/17 at 09:00 Hydralazine HCl (Apresoline) 10 mg TID PO Last administered on 05/08/17 14:36 ; Start 05/04/17 at 09:00 Lisinopril (Prinivil) 20 mg PRN DAILY PRN PO HYPERTENSION, SEE COMMENTS; Start 05/04/17 at 00:00 Calcium/Vitamin D (Oscal D 500mg/ 200uts) 1 tab BIDWMEALS PO Last administered on 05/08/17 14:37; Start 05/04/17 at 08:00 Labetalol HCl (Trandate) 300 mg TID PO Last administered on 05/08/17 14:37; Start 05/04/17 at 09:00 Atorvastatin Calcium (Lipitor) 10 mg HS PO Last administered on 05/07/17 20:02 ; Start 05/04/17 at 21:00 Clonazepam (KlonoPIN) 0.25 mg DAILY PO Last administered on 05/07/17 09:25; Start 05/05/17 at 09:00; Stop 05/07/17 at 13:00; Status DC Quetiapine Fumarate (SEROquel) 12.5 mg BID@0900,1400 PO Last administered on 13:56; Start 05/05/17 at 09:00; Stop 05/08/17 at 08:00; Status DC Donepezil HCl (Aricept) 10 mg DAILY PO Last administered on 05/08/17 09:26; Start 05/08/17 at 09:00 Quetiapine Fumarate (SEROquel) 12.5 mg TID@0900,1400,1700 PO Last administered on 12/10/17at 17:13; Start 05/08/17 at 09:00 Sertraline HCl (Zoloft) 50 mg DAILY PO ; Start 05/09/17 at 09:00 Active Scripts Active Reported Labetalol Hcl 300 Mg Tablet 300 Mg PO TID Hydralazine Hcl 10 Mg Tablet 10 Mg PO TID Gabapentin 100 Mg Capsule 100 Mg PO TID Oystercal-D 500 Mg-400 Unit Tb (Calcium Carbonate/Vitamin D3) 1 Each Tablet 1 Each PO BID Nuedexta 20-10 Mg Capsule (Dextromethorphan Hbr/Quinidine) 1 Each Capsule 1 Each PO BID Depakene (Valproate Sodium) 250 Mg/5 Ml Solution 250 Mg PO BID Pravastatin Sodium 40 Mg Tablet 40 Mg PO DAILY Mirtazapine 15 Mg Tablet 15 Mg PO QHS Lisinopril 20 Mg Tablet 20 Mg PO DAILY PRN Furosemide 20 Mg Tablet 20 Mg PO DAILY Clopidogrel (Clopidogrel Bisulfate) 75 Mg Tablet 75 Mg PO DAILY Clonazepam 0.5 Mg Tablet 0.5 Mg PO DAILY Vitamin D3 (Cholecalciferol (Vitamin D3)) 1,000 Unit Tablet 1,000 Unit PO DAILY Aspir-Low (Aspirin) 81 Mg Tablet. 81 Mg PO DAILY Aricept (Donepezil Hcl) 5 Mg Tablet 5 Mg PO DAILY I have reviewed the current psychotropics carefully including drug interactions. Risk benefit ratio favors no change other than as noted in my dictated progress note. Diagnosis: Problems: (1) Major depressive disorder with psychotic features (2) Chronic kidney disease ALESIA INFANTE MD May 08, 2017 19:54
[2017-05-08] MEDS: MIRTAZAPINE 15 MG TABLET PO SCH (20:25)
[2017-05-08] MEDS: ATORVASTATIN CALCIUM 10 MG TABLET. PO SCH (20:25)
[2017-05-09 05:52] VITALS: BP 155/80
[2017-05-09] MEDS: CALCIUM CARB/VIT D3 500/200 TABLET PO SCH ×2 (09:12→14:03)
[2017-05-09] MEDS: CLOPIDOGREL BISULFATE 75 MG TABLET PO SCH (09:13)
[2017-05-09] MEDS: DONEPEZIL HCL 10 MG TABLET PO SCH (09:13)
[2017-05-09] MEDS: ASPIRIN ENTERIC COATED 81 MG TABLET.DR. PO SCH (09:13)
[2017-05-09] MEDS: hydrALAZINE 10 MG TABLET PO SCH ×3 (09:13→20:11)
[2017-05-09] MEDS: VALPROATE ACID 250 MG/5 ML ORAL SOLUTION PO SCH ×2 (09:13→20:10)
[2017-05-09] MEDS: FUROSEMIDE 20 MG TABLET PO SCH (09:13)
[2017-05-09] MEDS: GABAPENTIN 100 MG CAPSULE. PO SCH ×3 (09:13→20:10)
[2017-05-09] MEDS: CHOLECALCIFEROL (VITAMIN D3) 1,000 UNIT TABLET PO SCH (09:14)
[2017-05-09] MEDS: QUEtiapine 25 MG TABLET. PO SCH ×3 (09:14→17:05)
[2017-05-09] MEDS: LABETALOL HCL 100 MG TABLET PO SCH ×3 (09:16→20:13)
[2017-05-09] MEDS: SERTRALINE 50 MG TABLET. PO SCH (09:16)
[2017-05-09] MEDS: DEXTROMETHORPHAN/QUINIDINE 20/10MG CAPSULE. PO SCH ×2 (09:28→20:14)
[2017-05-09 14:02] VITALS: BP 157/83
[2017-05-09 15:53] VITALS: BP 153/92
[2017-05-09] MEDS: MIRTAZAPINE 15 MG TABLET PO SCH (20:10)
[2017-05-09] MEDS: ATORVASTATIN CALCIUM 10 MG TABLET. PO SCH (20:10)
--- NOTE | 2017-05-09 21:22 | PDOC ---
Exam Note: Jimmie Note: Please also refer to the separate dictated note~for this date of service dictated separately.~Patient seen individually. Discussed the patient with Nursing staff reviewed the chart.~Reviewed interim history and current functioning. Reviewed vital signs,~Labs/ Radiology~and current medications noted below. Continue current treatment with the changes noted in the dictated addendum note Assessment: Vital Signs: Vital Signs Date Time Temp Pulse Resp B/P (MAP) Pulse Ox O2 Delivery O2 Flow Rate FiO2 05/09/17 20:13 71 153/92 05/09/17 15:53 97.8 18 96 05/07/17 16:19 Room Air I&O Intake and Output 05/09/17 07:00 Intake Total 840 ml Balance 840 ml Intake Oral 840 ml Current Medications: Meds: Current Medications Acetaminophen (Tylenol) 650 mg PRN Q6HRS PRN PO PAIN / TEMP; Start 05/03/17 at 23:30 Multi-Ingredient Ointment (Analgesic [place]) 1 anaya PRN QID PRN TP MUSCLE PAIN; Start 05/03/17 at 23:30 Al Hydroxide/Mg Hydroxide (Mylanta Plus Xs) 15 ml PRN AFTMEALHC PRN PO DYSPEPSIA; Start 05/03/17 at 23:30 Magnesium Hydroxide (Milk Of Magnesia) 2,400 mg PRN QHS PRN PO CONSTIPATION; Start 05/03/17 at 23:30 Clonazepam (KlonoPIN) 0.5 mg DAILY PO Last administered on 05/04/17 08:31; Start 05/04/17 at 09:00; Stop 05/04/17 at 18:37; Status DC Donepezil HCl (Aricept) 5 mg DAILY PO Last administered on 05/07/17 09:22; Start 05/04/17 at 09:00; Stop 05/07/17 at 19:27; Status DC Mirtazapine (Remeron) 15 mg QHS PO Last administered on 05/09/17 20:10; Start 05/04/17 at 21:00 Valproic Acid (Depakene) 250 mg BID PO Last administered on 05/09/17 20:10; Start 05/04/17 at 09:00 Aspirin (Aspirin Enteric Coated) 81 mg DAILY PO Last administered on 09:13; Start 05/04/17 at 09:00 Vitamin D (Vitamin D3) 1,000 unit DAILY PO Last administered on 05/09/17 09: 14; Start 05/04/17 at 09:00 Clopidogrel Bisulfate (Plavix) 75 mg DAILY PO Last administered on 05/09/17 09:13; Start 05/04/17 at 09:00 Furosemide (Lasix) 20 mg DAILY PO Last administered on 05/09/17 09:13; Start 05/04/17 at 09:00 Gabapentin (Neurontin) 100 mg TID PO Last administered on 05/09/17 20:10; Start 05/04/17 at 09:00 Hydralazine HCl (Apresoline) 10 mg TID PO Last administered on 05/09/17 20:11 ; Start 05/04/17 at 09:00 Lisinopril (Prinivil) 20 mg PRN DAILY PRN PO HYPERTENSION, SEE COMMENTS; Start 05/04/17 at 00:00 Calcium/Vitamin D (Oscal D 500mg/ 200uts) 1 tab BIDWMEALS PO Last administered on 05/09/17 14:03; Start 05/04/17 at 08:00 Labetalol HCl (Trandate) 300 mg TID PO Last administered on 05/09/17 20:13; Start 05/04/17 at 09:00 Atorvastatin Calcium (Lipitor) 10 mg HS PO Last administered on 05/09/17 20: 10; Start 05/04/17 at 21:00 Clonazepam (KlonoPIN) 0.25 mg DAILY PO Last administered on 05/07/17 09:25; Start 05/05/17 at 09:00; Stop 05/07/17 at 13:00; Status DC Quetiapine Fumarate (SEROquel) 12.5 mg BID@0900,1400 PO Last administered on 13:56; Start 05/05/17 at 09:00; Stop 05/08/17 at 08:00; Status DC Donepezil HCl (Aricept) 10 mg DAILY PO Last administered on 05/09/17 09:13; Start 05/08/17 at 09:00 Quetiapine Fumarate (SEROquel) 12.5 mg TID@0900,1400,1700 PO Last administered on 05/09/17 17:05; Start 05/08/17 at 09:00 Sertraline HCl (Zoloft) 50 mg DAILY PO Last administered on 05/09/17 09:16; Start 05/09/17 at 09:00 Active Scripts Active Reported Labetalol Hcl 300 Mg Tablet 300 Mg PO TID Hydralazine Hcl 10 Mg Tablet 10 Mg PO TID Gabapentin 100 Mg Capsule 100 Mg PO TID Oystercal-D 500 Mg-400 Unit Tb (Calcium Carbonate/Vitamin D3) 1 Each Tablet 1 Each PO BID Nuedexta 20-10 Mg Capsule (Dextromethorphan Hbr/Quinidine) 1 Each Capsule 1 Each PO BID Depakene (Valproate Sodium) 250 Mg/5 Ml Solution 250 Mg PO BID Pravastatin Sodium 40 Mg Tablet 40 Mg PO DAILY Mirtazapine 15 Mg Tablet 15 Mg PO QHS Lisinopril 20 Mg Tablet 20 Mg PO DAILY PRN Furosemide 20 Mg Tablet 20 Mg PO DAILY Clopidogrel (Clopidogrel Bisulfate) 75 Mg Tablet 75 Mg PO DAILY Clonazepam 0.5 Mg Tablet 0.5 Mg PO DAILY Vitamin D3 (Cholecalciferol (Vitamin D3)) 1,000 Unit Tablet 1,000 Unit PO DAILY Aspir-Low (Aspirin) 81 Mg Tablet. 81 Mg PO DAILY Aricept (Donepezil Hcl) 5 Mg Tablet 5 Mg PO DAILY I have reviewed the current psychotropics carefully including drug interactions. Risk benefit ratio favors no change other than as noted in my dictated progress note. Diagnosis: Problems: (1) Major depressive disorder with psychotic features ALESIA INFANTE MD May 09, 2017 21:22
--- NOTE | 2017-05-09 23:06 | PN ---
DATE: 05/08/2017 PSYCHIATRIC PROGRESS NOTE This is a late entry for date of service 05/08/2017 covers elements not covered in my initial note of 05/08/2017. SUBJECTIVE: I met with the patient evening of 05/08/2017. Overall, the patient had a good night and then a good day. Per nursing report, she has not been aggressive. REVIEW OF SYSTEMS: Ambulation impaired. No CV, , pulmonary, eye, ENT system symptoms on review. Impaired ambulation. MENTAL STATUS EXAM: Oriented to herself and situation. Speech moderate latency, coherent. Abstraction fair, computation impaired, language function intact. Mood and affect still depressed, anxious. No active suicidal or homicidal ideation. LABORATORY DATA: Reviewed. IMPRESSION: Unchanged from initial note. PLAN: Continue psychotropics mentioned in my initial note, adjust further as clinically indicated. MAN Marcus INFANTE MD DR: VELIA/lico JOB#: [id number] / [id number]
[2017-05-10 05:51] VITALS: BP 144/66
[2017-05-10] MEDS: VALPROATE ACID 250 MG/5 ML ORAL SOLUTION PO SCH ×2 (08:51→20:55)
[2017-05-10] MEDS: CALCIUM CARB/VIT D3 500/200 TABLET PO SCH ×2 (08:52→18:12)
[2017-05-10] MEDS: DONEPEZIL HCL 10 MG TABLET PO SCH (08:52)
[2017-05-10] MEDS: ASPIRIN ENTERIC COATED 81 MG TABLET.DR. PO SCH (08:52)
[2017-05-10] MEDS: CLOPIDOGREL BISULFATE 75 MG TABLET PO SCH (08:52)
[2017-05-10] MEDS: QUEtiapine 25 MG TABLET. PO SCH ×3 (08:52→18:12)
[2017-05-10] MEDS: hydrALAZINE 10 MG TABLET PO SCH ×3 (08:52→20:56)
[2017-05-10] MEDS: CHOLECALCIFEROL (VITAMIN D3) 1,000 UNIT TABLET PO SCH (08:52)
[2017-05-10] MEDS: SERTRALINE 50 MG TABLET. PO SCH (08:53)
[2017-05-10] MEDS: GABAPENTIN 100 MG CAPSULE. PO SCH ×3 (08:53→20:55)
[2017-05-10] MEDS: DEXTROMETHORPHAN/QUINIDINE 20/10MG CAPSULE. PO SCH ×2 (08:53→20:58)
[2017-05-10] MEDS: FUROSEMIDE 20 MG TABLET PO SCH (08:53)
[2017-05-10] MEDS: LABETALOL HCL 100 MG TABLET PO SCH ×3 (08:54→20:58)
[2017-05-10 10:31] LABS: BASO % 1 % (0-3); EOS # 0.1 x10^3/uL (0.0-0.7); EOS % 4 % (0-3); HEMATOCRIT 35.7 % (36.0-47.0); LYMPH # 0.9 x10^3/uL (1.0-4.8); LYMPH % 30 % (24-48); MEAN CORPUSCULAR HEMOGLOBIN 28 pg (25-35); MEAN CORPUSCULAR HGB CONC 34 g/dL (31-37); MEAN CORPUSCULAR VOLUME 84 fL (79-100); MONO # 0.5 x10^3/uL (0.0-1.1); MONO % 17 % (0-9); NEUT # 1.6 x10^3uL (1.8-7.7); NEUT % 49 % (31-73); PLATELET COUNT 146 x10^3/uL (140-400); RED BLOOD COUNT 4.26 x10^6/uL (3.50-5.40); RED CELL DISTRIBUTION WIDTH 13.9 % (11.5-14.5); WHITE BLOOD COUNT 3.2 x10^3/uL (4.0-11.0)
[2017-05-10 10:59] LABS: ALBUMIN 3.1 g/dL (3.4-5.0); ALBUMIN/GLOBULIN RATIO 0.8 (1.0-1.7); CALCIUM 9.3 mg/dL (8.5-10.1); CREATININE 1.6 mg/dL (0.6-1.0); GFR 39.4; POTASSIUM 4.3 mmol/L (3.5-5.1); TOTAL BILIRUBIN 0.3 mg/dL (0.2-1.0); TOTAL PROTEIN 7.1 g/dL (6.4-8.2)
[2017-05-10 16:03] VITALS: BP 161/77
[2017-05-10] MEDS: ATORVASTATIN CALCIUM 10 MG TABLET. PO SCH (20:56)
[2017-05-10] MEDS: MIRTAZAPINE 15 MG TABLET PO SCH (20:56)
--- NOTE | 2017-05-10 22:05 | PDOC ---
Exam Note: Jimmie Note: Please also refer to the separate dictated note~for this date of service dictated separately.~Patient seen individually. Discussed the patient with Nursing staff reviewed the chart.~Reviewed interim history and current functioning. Reviewed vital signs,~Labs/ Radiology~and current medications noted below. Continue current treatment with the changes noted in the dictated addendum note Assessment: Vital Signs: Vital Signs Date Time Temp Pulse Resp B/P (MAP) Pulse Ox O2 Delivery O2 Flow Rate FiO2 05/10/17 20:58 72 161/77 05/10/17 16:03 97.8 20 93 05/07/17 16:19 Room Air I&O Intake and Output 05/10/17 07:00 Intake Total 1200 ml Balance 1200 ml Intake Oral 1200 ml # Bowel Movements 2 Labs: Laboratory Tests Test 05/10/17 10:07 White Blood Count 3.2 x10^3/uL (4.0-11.0) L Red Blood Count 4.26 x10^6/uL (3.50-5.40) Hemoglobin 12.0 g/dL (12.0-15.5) Hematocrit 35.7 % (36.0-47.0) L Mean Corpuscular Volume 84 fL (79-100) Mean Corpuscular Hemoglobin 28 pg (25-35) Mean Corpuscular Hemoglobin Concent 34 g/dL (31-37) Red Cell Distribution Width 13.9 % (11.5-14.5) Platelet Count 146 x10^3/uL (140-400) Neutrophils (%) (Auto) 49 % (31-73) Lymphocytes (%) (Auto) 30 % (24-48) Monocytes (%) (Auto) 17 % (0-9) H Eosinophils (%) (Auto) 4 % (0-3) H Basophils (%) (Auto) 1 % (0-3) Neutrophils # (Auto) 1.6 x10^3uL (1.8-7.7) L Lymphocytes # (Auto) 0.9 x10^3/uL (1.0-4.8) L Monocytes # (Auto) 0.5 x10^3/uL (0.0-1.1) Eosinophils # (Auto) 0.1 x10^3/uL (0.0-0.7) Basophils # (Auto) 0.0 x10^3/uL (0.0-0.2) Sodium Level 144 mmol/L (136-145) Potassium Level 4.3 mmol/L (3.5-5.1) Chloride Level 108 mmol/L (98-107) H Carbon Dioxide Level 31 mmol/L (21-32) Anion Gap 5 (6-14) L Blood Urea Nitrogen 23 mg/dL (7-20) H Creatinine 1.6 mg/dL (0.6-1.0) H Estimated GFR (Cockcroft-Gault) 39.4 BUN/Creatinine Ratio 14 (6-20) Glucose Level 80 mg/dL (70-99) Calcium Level 9.3 mg/dL (8.5-10.1) Total Bilirubin 0.3 mg/dL (0.2-1.0) Aspartate Amino Transferase (AST) 19 U/L (15-37) Alanine Aminotransferase (ALT) 24 U/L (14-59) Alkaline Phosphatase 57 U/L (46-116) Total Protein 7.1 g/dL (6.4-8.2) Albumin 3.1 g/dL (3.4-5.0) L Albumin/Globulin Ratio 0.8 (1.0-1.7) L Current Medications: Meds: Current Medications Acetaminophen (Tylenol) 650 mg PRN Q6HRS PRN PO PAIN / TEMP; Start 05/03/17 at 23:30 Multi-Ingredient Ointment (Analgesic [place]) 1 anaya PRN QID PRN TP MUSCLE PAIN; Start 05/03/17 at 23:30 Al Hydroxide/Mg Hydroxide (Mylanta Plus Xs) 15 ml PRN AFTMEALHC PRN PO DYSPEPSIA; Start 05/03/17 at 23:30 Magnesium Hydroxide (Milk Of Magnesia) 2,400 mg PRN QHS PRN PO CONSTIPATION; Start 05/03/17 at 23:30 Clonazepam (KlonoPIN) 0.5 mg DAILY PO Last administered on 05/04/17 08:31; Start 05/04/17 at 09:00; Stop 05/04/17 at 18:37; Status DC Donepezil HCl (Aricept) 5 mg DAILY PO Last administered on 05/07/17 09:22; Start 05/04/17 at 09:00; Stop 05/07/17 at 19:27; Status DC Mirtazapine (Remeron) 15 mg QHS PO Last administered on 05/10/17 20:56; Start 05/04/17 at 21:00 Valproic Acid (Depakene) 250 mg BID PO Last administered on 05/10/17 20:55; Start 05/04/17 at 09:00 Aspirin (Aspirin Enteric Coated) 81 mg DAILY PO Last administered on 08:52; Start 05/04/17 at 09:00 Vitamin D (Vitamin D3) 1,000 unit DAILY PO Last administered on 05/10/17 08: 52; Start 05/04/17 at 09:00 Clopidogrel Bisulfate (Plavix) 75 mg DAILY PO Last administered on 05/10/17 08:52; Start 05/04/17 at 09:00 Dextromethorphan/ Quinidine (Nuedexta 20-10 Mg Capsule) 1 cap BID PO Last administered on 05/10/17 20:58; Start 05/04/17 at 09:00 Furosemide (Lasix) 20 mg DAILY PO Last administered on 05/10/17 08:53; Start 05/04/17 at 09:00 Gabapentin (Neurontin) 100 mg TID PO Last administered on 05/10/17 20:55; Start 05/04/17 at 09:00 Hydralazine HCl (Apresoline) 10 mg TID PO Last administered on 05/10/17 20:56 ; Start 05/04/17 at 09:00 Lisinopril (Prinivil) 20 mg PRN DAILY PRN PO HYPERTENSION, SEE COMMENTS; Start 05/04/17 at 00:00 Calcium/Vitamin D (Oscal D 500mg/ 200uts) 1 tab BIDWMEALS PO Last administered on 05/10/17 18:12; Start 05/04/17 at 08:00 Labetalol HCl (Trandate) 300 mg TID PO Last administered on 05/10/17 20:58; Start 05/04/17 at 09:00 Atorvastatin Calcium (Lipitor) 10 mg HS PO Last administered on 05/10/17 20: 56; Start 05/04/17 at 21:00 Clonazepam (KlonoPIN) 0.25 mg DAILY PO Last administered on 05/07/17 09:25; Start 05/05/17 at 09:00; Stop 05/07/17 at 13:00; Status DC Quetiapine Fumarate (SEROquel) 12.5 mg BID@0900,1400 PO Last administered on 13:56; Start 05/05/17 at 09:00; Stop 05/08/17 at 08:00; Status DC Donepezil HCl (Aricept) 10 mg DAILY PO Last administered on 05/10/17 08:52; Start 05/08/17 at 09:00 Quetiapine Fumarate (SEROquel) 12.5 mg TID@0900,1400,1700 PO Last administered on 05/10/17 18:12; Start 05/08/17 at 09:00 Sertraline HCl (Zoloft) 50 mg DAILY PO Last administered on 05/10/17 08:53; Start 05/09/17 at 09:00; Stop 05/10/17 at 16:52; Status DC Sertraline HCl (Zoloft) 75 mg DAILY PO ; Start 05/11/17 at 09:00 Active Scripts Active Reported Labetalol Hcl 300 Mg Tablet 300 Mg PO TID Hydralazine Hcl 10 Mg Tablet 10 Mg PO TID Gabapentin 100 Mg Capsule 100 Mg PO TID Oystercal-D 500 Mg-400 Unit Tb (Calcium Carbonate/Vitamin D3) 1 Each Tablet 1 Each PO BID Nuedexta 20-10 Mg Capsule (Dextromethorphan Hbr/Quinidine) 1 Each Capsule 1 Each PO BID Depakene (Valproate Sodium) 250 Mg/5 Ml Solution 250 Mg PO BID Pravastatin Sodium 40 Mg Tablet 40 Mg PO DAILY Mirtazapine 15 Mg Tablet 15 Mg PO QHS Lisinopril 20 Mg Tablet 20 Mg PO DAILY PRN Furosemide 20 Mg Tablet 20 Mg PO DAILY Clopidogrel (Clopidogrel Bisulfate) 75 Mg Tablet 75 Mg PO DAILY Clonazepam 0.5 Mg Tablet 0.5 Mg PO DAILY Vitamin D3 (Cholecalciferol (Vitamin D3)) 1,000 Unit Tablet 1,000 Unit PO DAILY Aspir-Low (Aspirin) 81 Mg Tablet. 81 Mg PO DAILY Aricept (Donepezil Hcl) 5 Mg Tablet 5 Mg PO DAILY I have reviewed the current psychotropics carefully including drug interactions. Risk benefit ratio favors no change other than as noted in my dictated progress note. Diagnosis: Problems: (1) Major depressive disorder with psychotic features ALESIA INFANTE MD May 10, 2017 22:05
--- NOTE | 2017-05-11 05:35 | PN ---
DATE: 05/09/2017 PSYCHIATRIC PROGRESS NOTE This late entry of 05/09/2017 covers elements not covered in my initial note of 05/09/2017. I met with the patient in the evening of 05/09/2017. The patient did well the previous evening, less anxious, labile during the day on 05/09/2017. REVIEW OF SYSTEMS: Ambulation impaired, in wheelchair. No CV, , pulmonary, eye system symptoms on review. MENTAL STATUS EXAMINATION: Oriented to herself. Speech is coherent, has some latency. Abstraction fair, computation impaired, language function intact, attention span short. Mood and affect still depressed, somewhat withdrawn, but less irritable. No suicidal or homicidal ideation. LABORATORY DATA: Reviewed. IMPRESSION: Unchanged from initial note. PLAN: Continue current psychotropics mentioned in my initial note. Valproic acid level therapeutic at 66. Starting 05/11/2017, we will increase the Zoloft to 75 mg a day. ALESIA INFANTE MD DR: VELIA/lico JOB#: [id number] / [id number]
[2017-05-11 06:18] VITALS: BP 128/70
[2017-05-11] MEDS: GABAPENTIN 100 MG CAPSULE. PO SCH ×3 (10:45→21:02)
[2017-05-11] MEDS: VALPROATE ACID 250 MG/5 ML ORAL SOLUTION PO SCH ×2 (10:45→21:01)
[2017-05-11] MEDS: DONEPEZIL HCL 10 MG TABLET PO SCH (10:46)
[2017-05-11] MEDS: FUROSEMIDE 20 MG TABLET PO SCH (10:46)
[2017-05-11] MEDS: LABETALOL HCL 100 MG TABLET PO SCH ×3 (10:46→21:05)
[2017-05-11] MEDS: DEXTROMETHORPHAN/QUINIDINE 20/10MG CAPSULE. PO SCH ×2 (10:46→21:05)
[2017-05-11] MEDS: CLOPIDOGREL BISULFATE 75 MG TABLET PO SCH (10:47)
[2017-05-11] MEDS: ASPIRIN ENTERIC COATED 81 MG TABLET.DR. PO SCH (10:47)
[2017-05-11] MEDS: QUEtiapine 25 MG TABLET. PO SCH ×3 (10:47→18:16)
[2017-05-11] MEDS: CHOLECALCIFEROL (VITAMIN D3) 1,000 UNIT TABLET PO SCH (10:48)
[2017-05-11] MEDS: hydrALAZINE 10 MG TABLET PO SCH ×3 (10:48→21:02)
[2017-05-11] MEDS: SERTRALINE 50 MG TABLET. PO SCH (10:51)
[2017-05-11] MEDS: CALCIUM CARB/VIT D3 500/200 TABLET PO SCH ×2 (10:51→18:16)
[2017-05-11 16:26] VITALS: BP 134/90
[2017-05-11] MEDS ORDERED: traZODone 50 MG TABLET. PO PRN (19:15)
--- NOTE | 2017-05-11 20:05 | PDOC ---
Exam Note: Jimmie Note: Please also refer to the separate dictated note~for this date of service dictated separately.~Patient seen individually. Discussed the patient with Nursing staff reviewed the chart.~Reviewed interim history and current functioning. Reviewed vital signs,~Labs/ Radiology~and current medications noted below. Continue current treatment with the changes noted in the dictated addendum note Assessment: Vital Signs: Vital Signs Date Time Temp Pulse Resp B/P (MAP) Pulse Ox O2 Delivery O2 Flow Rate FiO2 05/11/17 16:26 98.2 73 20 134/90 (105) 96 05/07/17 16:19 Room Air I&O Intake and Output 05/11/17 07:00 Intake Total 960 ml Balance 960 ml Intake Oral 960 ml Current Medications: Meds: Current Medications Acetaminophen (Tylenol) 650 mg PRN Q6HRS PRN PO PAIN / TEMP; Start 05/03/17 at 23:30 Multi-Ingredient Ointment (Analgesic [place]) 1 anaya PRN QID PRN TP MUSCLE PAIN; Start 05/03/17 at 23:30 Al Hydroxide/Mg Hydroxide (Mylanta Plus Xs) 15 ml PRN AFTMEALHC PRN PO DYSPEPSIA; Start 05/03/17 at 23:30 Magnesium Hydroxide (Milk Of Magnesia) 2,400 mg PRN QHS PRN PO CONSTIPATION; Start 05/03/17 at 23:30 Clonazepam (KlonoPIN) 0.5 mg DAILY PO Last administered on 05/04/17 08:31; Start 05/04/17 at 09:00; Stop 05/04/17 at 18:37; Status DC Donepezil HCl (Aricept) 5 mg DAILY PO Last administered on 05/07/17 09:22; Start 05/04/17 at 09:00; Stop 05/07/17 at 19:27; Status DC Mirtazapine (Remeron) 15 mg QHS PO Last administered on 05/10/17 20:56; Start 05/04/17 at 21:00 Valproic Acid (Depakene) 250 mg BID PO Last administered on 05/11/17 10:45; Start 05/04/17 at 09:00 Aspirin (Aspirin Enteric Coated) 81 mg DAILY PO Last administered on 10:47; Start 05/04/17 at 09:00 Vitamin D (Vitamin D3) 1,000 unit DAILY PO Last administered on 05/11/17 10: 48; Start 05/04/17 at 09:00 Clopidogrel Bisulfate (Plavix) 75 mg DAILY PO Last administered on 05/11/17 10:47; Start 05/04/17 at 09:00 Dextromethorphan/ Quinidine (Nuedexta 20-10 Mg Capsule) 1 cap BID PO Last administered on 05/11/17 10:46; Start 05/04/17 at 09:00 Furosemide (Lasix) 20 mg DAILY PO Last administered on 05/11/17 10:46; Start 05/04/17 at 09:00 Gabapentin (Neurontin) 100 mg TID PO Last administered on 05/11/17 15:26; Start 05/04/17 at 09:00 Hydralazine HCl (Apresoline) 10 mg TID PO Last administered on 05/11/17 15:27 ; Start 05/04/17 at 09:00 Lisinopril (Prinivil) 20 mg PRN DAILY PRN PO HYPERTENSION, SEE COMMENTS; Start 05/04/17 at 00:00 Calcium/Vitamin D (Oscal D 500mg/ 200uts) 1 tab BIDWMEALS PO Last administered on 05/11/17 18:16; Start 05/04/17 at 08:00 Labetalol HCl (Trandate) 300 mg TID PO Last administered on 05/11/17 15:26; Start 05/04/17 at 09:00 Atorvastatin Calcium (Lipitor) 10 mg HS PO Last administered on 05/10/17 20: 56; Start 05/04/17 at 21:00 Clonazepam (KlonoPIN) 0.25 mg DAILY PO Last administered on 05/07/17 09:25; Start 05/05/17 at 09:00; Stop 05/07/17 at 13:00; Status DC Quetiapine Fumarate (SEROquel) 12.5 mg BID@0900,1400 PO Last administered on 13:56; Start 05/05/17 at 09:00; Stop 05/08/17 at 08:00; Status DC Donepezil HCl (Aricept) 10 mg DAILY PO Last administered on 05/11/17 10:46; Start 05/08/17 at 09:00 Quetiapine Fumarate (SEROquel) 12.5 mg TID@0900,1400,1700 PO Last administered on 05/11/17 18:16; Start 05/08/17 at 09:00 Sertraline HCl (Zoloft) 50 mg DAILY PO Last administered on 05/10/17 08:53; Start 05/09/17 at 09:00; Stop 05/10/17 at 16:52; Status DC Sertraline HCl (Zoloft) 75 mg DAILY PO Last administered on 05/11/17 10:51; Start 05/11/17 at 09:00 Trazodone HCl (Desyrel) 50 mg QHS PO ; Start 05/11/17 at 21:00 Trazodone HCl (Desyrel) 50 mg PRN QHS PRN PO INSOMNIA; Start 05/11/17 at 19:15 Active Scripts Active Reported Labetalol Hcl 300 Mg Tablet 300 Mg PO TID Hydralazine Hcl 10 Mg Tablet 10 Mg PO TID Gabapentin 100 Mg Capsule 100 Mg PO TID Oystercal-D 500 Mg-400 Unit Tb (Calcium Carbonate/Vitamin D3) 1 Each Tablet 1 Each PO BID Nuedexta 20-10 Mg Capsule (Dextromethorphan Hbr/Quinidine) 1 Each Capsule 1 Each PO BID Depakene (Valproate Sodium) 250 Mg/5 Ml Solution 250 Mg PO BID Pravastatin Sodium 40 Mg Tablet 40 Mg PO DAILY Mirtazapine 15 Mg Tablet 15 Mg PO QHS Lisinopril 20 Mg Tablet 20 Mg PO DAILY PRN Furosemide 20 Mg Tablet 20 Mg PO DAILY Clopidogrel (Clopidogrel Bisulfate) 75 Mg Tablet 75 Mg PO DAILY Clonazepam 0.5 Mg Tablet 0.5 Mg PO DAILY Vitamin D3 (Cholecalciferol (Vitamin D3)) 1,000 Unit Tablet 1,000 Unit PO DAILY Aspir-Low (Aspirin) 81 Mg Tablet. 81 Mg PO DAILY Aricept (Donepezil Hcl) 5 Mg Tablet 5 Mg PO DAILY I have reviewed the current psychotropics carefully including drug interactions. Risk benefit ratio favors no change other than as noted in my dictated progress note. Diagnosis: Problems: (1) Major depressive disorder with psychotic features (2) Chronic kidney disease ALESIA INFANTE MD May 11, 2017 20:05
[2017-05-11] MEDS: ATORVASTATIN CALCIUM 10 MG TABLET. PO SCH (21:02)
[2017-05-11] MEDS: MIRTAZAPINE 15 MG TABLET PO SCH (21:02)
[2017-05-11] MEDS: traZODone 50 MG TABLET. PO SCH (21:05)
--- NOTE | 2017-05-11 23:22 | PN ---
DATE: 05/10/2017 PSYCHIATRIC PROGRESS NOTE This late entry date of service 05/10/2017 covers elements not covered in my initial note 05/10/2017. I met with the patient in the evening of 05/10/2017. Overall, the patient gets a little anxious, threw up at one point, refused a.m. medications, took it later. Rest of the day, she has been alright, still depressed, anxious, but not aggressive. REVIEW OF SYSTEMS: Ambulation impaired, in wheelchair. No CV, , pulmonary, eye, ENT system symptoms on review. MENTAL STATUS EXAM: Oriented to herself and situation. Speech has some latency, coherent. Abstraction fair, computation impaired, language function intact, attention span short. Mood and affect still somewhat dysphoric, depressed, anxious, but improved. No suicidal or homicidal ideation. LABORATORY DATA: Reviewed. IMPRESSION: Unchanged from initial note. PLAN: Continue psychotropics mentioned in my initial note. Valproic acid level therapeutic at 66. ALESIA INFANTE MD DR: VELIA/lico JOB#: [id number] / [id number]
[2017-05-12 06:11] VITALS: BP 132/83
[2017-05-12] MEDS: CALCIUM CARB/VIT D3 500/200 TABLET PO SCH ×2 (09:42→15:36)
[2017-05-12] MEDS: VALPROATE ACID 250 MG/5 ML ORAL SOLUTION PO SCH ×2 (09:42→20:44)
[2017-05-12] MEDS: FUROSEMIDE 20 MG TABLET PO SCH (09:42)
[2017-05-12] MEDS: SERTRALINE 50 MG TABLET. PO SCH (09:43)
[2017-05-12] MEDS: GABAPENTIN 100 MG CAPSULE. PO SCH ×3 (09:43→20:40)
[2017-05-12] MEDS: CLOPIDOGREL BISULFATE 75 MG TABLET PO SCH (09:43)
[2017-05-12] MEDS: ASPIRIN ENTERIC COATED 81 MG TABLET.DR. PO SCH (09:43)
[2017-05-12] MEDS: CHOLECALCIFEROL (VITAMIN D3) 1,000 UNIT TABLET PO SCH (09:43)
[2017-05-12] MEDS: DONEPEZIL HCL 10 MG TABLET PO SCH (09:43)
[2017-05-12] MEDS: hydrALAZINE 10 MG TABLET PO SCH ×3 (09:43→20:39)
[2017-05-12] MEDS: QUEtiapine 25 MG TABLET. PO SCH ×3 (09:43→15:37)
[2017-05-12] MEDS: LABETALOL HCL 100 MG TABLET PO SCH ×3 (09:44→20:43)
[2017-05-12] MEDS: DEXTROMETHORPHAN/QUINIDINE 20/10MG CAPSULE. PO SCH ×2 (09:45→20:43)
[2017-05-12 15:35] VITALS: BP 159/84
[2017-05-12 16:26] VITALS: BP 159/84
--- NOTE | 2017-05-12 20:07 | PDOC ---
Exam Note: Jimmie Note: Please also refer to the separate dictated note~for this date of service dictated separately.~Patient seen individually. Discussed the patient with Nursing staff reviewed the chart.~Reviewed interim history and current functioning. Reviewed vital signs,~Labs/ Radiology~and current medications noted below. Continue current treatment with the changes noted in the dictated addendum note Assessment: Vital Signs: Vital Signs Date Time Temp Pulse Resp B/P (MAP) Pulse Ox O2 Delivery O2 Flow Rate FiO2 05/12/17 16:26 98.5 71 18 159/84 (109) 96 05/07/17 16:19 Room Air I&O Intake and Output 05/12/17 07:00 Intake Total 1200 ml Balance 1200 ml Intake Oral 1200 ml # Voids 1 # Bowel Movements 1 Current Medications: Meds: Current Medications Acetaminophen (Tylenol) 650 mg PRN Q6HRS PRN PO PAIN / TEMP; Start 05/03/17 at 23:30 Multi-Ingredient Ointment (Analgesic [place]) 1 anaya PRN QID PRN TP MUSCLE PAIN; Start 05/03/17 at 23:30 Al Hydroxide/Mg Hydroxide (Mylanta Plus Xs) 15 ml PRN AFTMEALHC PRN PO DYSPEPSIA; Start 05/03/17 at 23:30 Magnesium Hydroxide (Milk Of Magnesia) 2,400 mg PRN QHS PRN PO CONSTIPATION; Start 05/03/17 at 23:30 Clonazepam (KlonoPIN) 0.5 mg DAILY PO Last administered on 05/04/17 08:31; Start 05/04/17 at 09:00; Stop 05/04/17 at 18:37; Status DC Donepezil HCl (Aricept) 5 mg DAILY PO Last administered on 05/07/17 09:22; Start 05/04/17 at 09:00; Stop 05/07/17 at 19:27; Status DC Mirtazapine (Remeron) 15 mg QHS PO Last administered on 05/11/17 21:02; Start 05/04/17 at 21:00 Valproic Acid (Depakene) 250 mg BID PO Last administered on 05/12/17 09:42; Start 05/04/17 at 09:00 Aspirin (Aspirin Enteric Coated) 81 mg DAILY PO Last administered on 09:43; Start 05/04/17 at 09:00 Vitamin D (Vitamin D3) 1,000 unit DAILY PO Last administered on 05/12/17 09: 43; Start 05/04/17 at 09:00 Clopidogrel Bisulfate (Plavix) 75 mg DAILY PO Last administered on 05/12/17 09:43; Start 05/04/17 at 09:00 Dextromethorphan/ Quinidine (Nuedexta 20-10 Mg Capsule) 1 cap BID PO Last administered on 05/12/17 09:45; Start 05/04/17 at 09:00 Furosemide (Lasix) 20 mg DAILY PO Last administered on 05/12/17 09:42; Start 05/04/17 at 09:00 Gabapentin (Neurontin) 100 mg TID PO Last administered on 05/12/17 15:37; Start 05/04/17 at 09:00 Hydralazine HCl (Apresoline) 10 mg TID PO Last administered on 05/12/17 15:37 ; Start 05/04/17 at 09:00 Lisinopril (Prinivil) 20 mg PRN DAILY PRN PO HYPERTENSION, SEE COMMENTS; Start 05/04/17 at 00:00 Calcium/Vitamin D (Oscal D 500mg/ 200uts) 1 tab BIDWMEALS PO Last administered on 05/12/17 15:36; Start 05/04/17 at 08:00 Labetalol HCl (Trandate) 300 mg TID PO Last administered on 05/12/17 15:38; Start 05/04/17 at 09:00 Atorvastatin Calcium (Lipitor) 10 mg HS PO Last administered on 05/11/17 21: 02; Start 05/04/17 at 21:00 Clonazepam (KlonoPIN) 0.25 mg DAILY PO Last administered on 05/07/17 09:25; Start 05/05/17 at 09:00; Stop 05/07/17 at 13:00; Status DC Quetiapine Fumarate (SEROquel) 12.5 mg BID@0900,1400 PO Last administered on 13:56; Start 05/05/17 at 09:00; Stop 05/08/17 at 08:00; Status DC Donepezil HCl (Aricept) 10 mg DAILY PO Last administered on 05/12/17 09:43; Start 05/08/17 at 09:00 Quetiapine Fumarate (SEROquel) 12.5 mg TID@0900,1400,1700 PO Last administered on 05/12/17 15:37; Start 05/08/17 at 09:00 Sertraline HCl (Zoloft) 50 mg DAILY PO Last administered on 05/10/17 08:53; Start 05/09/17 at 09:00; Stop 05/10/17 at 16:52; Status DC Sertraline HCl (Zoloft) 75 mg DAILY PO Last administered on 05/12/17 09:43; Start 05/11/17 at 09:00 Trazodone HCl (Desyrel) 50 mg QHS PO Last administered on 05/11/17 21:05; Start 05/11/17 at 21:00 Trazodone HCl (Desyrel) 50 mg PRN QHS PRN PO INSOMNIA; Start 05/11/17 at 19:15 Active Scripts Active Reported Labetalol Hcl 300 Mg Tablet 300 Mg PO TID Hydralazine Hcl 10 Mg Tablet 10 Mg PO TID Gabapentin 100 Mg Capsule 100 Mg PO TID Oystercal-D 500 Mg-400 Unit Tb (Calcium Carbonate/Vitamin D3) 1 Each Tablet 1 Each PO BID Nuedexta 20-10 Mg Capsule (Dextromethorphan Hbr/Quinidine) 1 Each Capsule 1 Each PO BID Depakene (Valproate Sodium) 250 Mg/5 Ml Solution 250 Mg PO BID Pravastatin Sodium 40 Mg Tablet 40 Mg PO DAILY Mirtazapine 15 Mg Tablet 15 Mg PO QHS Lisinopril 20 Mg Tablet 20 Mg PO DAILY PRN Furosemide 20 Mg Tablet 20 Mg PO DAILY Clopidogrel (Clopidogrel Bisulfate) 75 Mg Tablet 75 Mg PO DAILY Clonazepam 0.5 Mg Tablet 0.5 Mg PO DAILY Vitamin D3 (Cholecalciferol (Vitamin D3)) 1,000 Unit Tablet 1,000 Unit PO DAILY Aspir-Low (Aspirin) 81 Mg Tablet. 81 Mg PO DAILY Aricept (Donepezil Hcl) 5 Mg Tablet 5 Mg PO DAILY I have reviewed the current psychotropics carefully including drug interactions. Risk benefit ratio favors no change other than as noted in my dictated progress note. Diagnosis: Problems: (1) Major depressive disorder with psychotic features ALESIA INFANTE MD May 12, 2017 20:07
[2017-05-12] MEDS: MIRTAZAPINE 15 MG TABLET PO SCH (20:39)
[2017-05-12] MEDS: traZODone 50 MG TABLET. PO SCH (20:39)
[2017-05-12] MEDS: ATORVASTATIN CALCIUM 10 MG TABLET. PO SCH (20:39)
[2017-05-13] MEDS ORDERED: ACET325T9 PO (02:21)
[2017-05-13] MEDS ORDERED: QUET25TA5 PO (02:22)
[2017-05-13] MEDS ORDERED: SERT50TA8 PO (02:22)
[2017-05-13] MEDS ORDERED: TRAZ50TA15 PO ×2 (02:23)
[2017-05-13] MEDS ORDERED: DONE10TA7 PO (02:24)
[2017-05-13 06:25] VITALS: BP 138/75
[2017-05-13] MEDS: CALCIUM CARB/VIT D3 500/200 TABLET PO SCH (08:53)
[2017-05-13] MEDS: SERTRALINE 50 MG TABLET. PO SCH (08:53)
[2017-05-13] MEDS: hydrALAZINE 10 MG TABLET PO SCH ×2 (08:54→12:52)
[2017-05-13] MEDS: DONEPEZIL HCL 10 MG TABLET PO SCH (08:54)
[2017-05-13] MEDS: FUROSEMIDE 20 MG TABLET PO SCH (08:54)
[2017-05-13] MEDS: QUEtiapine 25 MG TABLET. PO SCH ×2 (08:54→12:52)
[2017-05-13] MEDS: CLOPIDOGREL BISULFATE 75 MG TABLET PO SCH (08:55)
[2017-05-13] MEDS: CHOLECALCIFEROL (VITAMIN D3) 1,000 UNIT TABLET PO SCH (08:55)
[2017-05-13] MEDS: VALPROATE ACID 250 MG/5 ML ORAL SOLUTION PO SCH (08:55)
[2017-05-13] MEDS: GABAPENTIN 100 MG CAPSULE. PO SCH ×2 (08:55→12:52)
[2017-05-13] MEDS: ASPIRIN ENTERIC COATED 81 MG TABLET.DR. PO SCH (08:55)
[2017-05-13] MEDS: LABETALOL HCL 100 MG TABLET PO SCH ×2 (08:56→12:52)
[2017-05-13] MEDS: DEXTROMETHORPHAN/QUINIDINE 20/10MG CAPSULE. PO SCH (08:56)
[2017-05-13 12:52] VITALS: BP 145/83
--- NOTE | 2017-05-13 18:55 | PDOC ---
Exam Note: Jimmie Note: Please also refer to the separate dictated note~for this date of service dictated separately.~Patient seen individually. Discussed the patient with Nursing staff reviewed the chart.~Reviewed interim history and current functioning. Reviewed vital signs,~Labs/ Radiology~and current medications noted below. Continue current treatment with the changes noted in the dictated addendum note Assessment: Vital Signs: Vital Signs Date Time Temp Pulse Resp B/P (MAP) Pulse Ox O2 Delivery O2 Flow Rate FiO2 05/13/17 12:52 78 145/83 05/13/17 06:25 97.6 18 95 Room Air I&O Intake and Output 05/13/17 07:00 Intake Total 1200 ml Balance 1200 ml Intake Oral 1200 ml Current Medications: Meds: Current Medications Acetaminophen (Tylenol) 650 mg PRN Q6HRS PRN PO PAIN / TEMP; Start 05/03/17 at 23:30; Stop 05/13/17 at 13:38; Status DC Multi-Ingredient Ointment (Analgesic [place]) 1 anaya PRN QID PRN TP MUSCLE PAIN; Start 05/03/17 at 23:30; Stop 05/13/17 at 13:38; Status DC Al Hydroxide/Mg Hydroxide (Mylanta Plus Xs) 15 ml PRN AFTMEALHC PRN PO DYSPEPSIA; Start 05/03/17 at 23:30; Stop 05/13/17 at 13:38; Status DC Magnesium Hydroxide (Milk Of Magnesia) 2,400 mg PRN QHS PRN PO CONSTIPATION; Start 05/03/17 at 23:30; Stop 05/13/17 at 13:38; Status DC Clonazepam (KlonoPIN) 0.5 mg DAILY PO Last administered on 05/04/17 08:31; Start 05/04/17 at 09:00; Stop 05/04/17 at 18:37; Status DC Donepezil HCl (Aricept) 5 mg DAILY PO Last administered on 05/07/17 09:22; Start 05/04/17 at 09:00; Stop 05/07/17 at 19:27; Status DC Mirtazapine (Remeron) 15 mg QHS PO Last administered on 05/12/17 20:39; Start 05/04/17 at 21:00; Stop 05/13/17 at 13:38; Status DC Valproic Acid (Depakene) 250 mg BID PO Last administered on 05/13/17 08:55; Start 05/04/17 at 09:00; Stop 05/13/17 at 13:38; Status DC Aspirin (Aspirin Enteric Coated) 81 mg DAILY PO Last administered on 08:55; Start 05/04/17 at 09:00; Stop 05/13/17 at 13:38; Status DC Vitamin D (Vitamin D3) 1,000 unit DAILY PO Last administered on 05/13/17 08: 55; Start 05/04/17 at 09:00; Stop 05/13/17 at 13:38; Status DC Clopidogrel Bisulfate (Plavix) 75 mg DAILY PO Last administered on 05/13/17 08:55; Start 05/04/17 at 09:00; Stop 05/13/17 at 13:38; Status DC Dextromethorphan/ Quinidine (Nuedexta 20-10 Mg Capsule) 1 cap BID PO Last administered on 05/13/17 08:56; Start 05/04/17 at 09:00; Stop 05/13/17 at 13: 38; Status DC Furosemide (Lasix) 20 mg DAILY PO Last administered on 05/13/17 08:54; Start 05/04/17 at 09:00; Stop 05/13/17 at 13:38; Status DC Gabapentin (Neurontin) 100 mg TID PO Last administered on 05/13/17 12:52; Start 05/04/17 at 09:00; Stop 05/13/17 at 13:38; Status DC Hydralazine HCl (Apresoline) 10 mg TID PO Last administered on 05/13/17 12:52 ; Start 05/04/17 at 09:00; Stop 05/13/17 at 13:38; Status DC Lisinopril (Prinivil) 20 mg PRN DAILY PRN PO HYPERTENSION, SEE COMMENTS; Start 05/04/17 at 00:00; Stop 05/13/17 at 13:38; Status DC Calcium/Vitamin D (Oscal D 500mg/ 200uts) 1 tab BIDWMEALS PO Last administered on 05/13/17 08:53; Start 05/04/17 at 08:00; Stop 05/13/17 at 13:38; Status DC Labetalol HCl (Trandate) 300 mg TID PO Last administered on 05/13/17 12:52; Start 05/04/17 at 09:00; Stop 05/13/17 at 13:38; Status DC Atorvastatin Calcium (Lipitor) 10 mg HS PO Last administered on 05/12/17 20: 39; Start 05/04/17 at 21:00; Stop 05/13/17 at 13:38; Status DC Clonazepam (KlonoPIN) 0.25 mg DAILY PO Last administered on 05/07/17 09:25; Start 05/05/17 at 09:00; Stop 05/07/17 at 13:00; Status DC Quetiapine Fumarate (SEROquel) 12.5 mg BID@0900,1400 PO Last administered on 13:56; Start 05/05/17 at 09:00; Stop 05/08/17 at 08:00; Status DC Donepezil HCl (Aricept) 10 mg DAILY PO Last administered on 05/13/17 08:54; Start 05/08/17 at 09:00; Stop 05/13/17 at 13:38; Status DC Quetiapine Fumarate (SEROquel) 12.5 mg TID@0900,1400,1700 PO Last administered on 05/13/17 12:52; Start 05/08/17 at 09:00; Stop 05/13/17 at 13:38; Status DC Sertraline HCl (Zoloft) 50 mg DAILY PO Last administered on 05/10/17 08:53; Start 05/09/17 at 09:00; Stop 05/10/17 at 16:52; Status DC Sertraline HCl (Zoloft) 75 mg DAILY PO Last administered on 05/13/17 08:53; Start 05/11/17 at 09:00; Stop 05/13/17 at 13:38; Status DC Trazodone HCl (Desyrel) 50 mg QHS PO Last administered on 05/12/17 20:39; Start 05/11/17 at 21:00; Stop 05/13/17 at 13:38; Status DC Trazodone HCl (Desyrel) 50 mg PRN QHS PRN PO INSOMNIA; Start 12/13/17 at 19:15 ; Stop 05/13/17 at 13:38; Status DC Active Scripts Active Reported Donepezil Hcl 10 Mg Tablet 10 Mg PO DAILY Trazodone Hcl 50 Mg Tablet 50 Mg PO PRN QHS PRN Trazodone Hcl 50 Mg Tablet 50 Mg PO HS Sertraline Hcl 50 Mg Tablet 75 Mg PO DAILY Seroquel (Quetiapine Fumarate) 25 Mg Tablet 12.5 Mg PO TID@0900,1400,1700 Tylenol (Acetaminophen) 325 Mg Tablet 650 Mg PO PRN Q6HRS PRN Labetalol Hcl 300 Mg Tablet 300 Mg PO TID Hydralazine Hcl 10 Mg Tablet 10 Mg PO TID Gabapentin 100 Mg Capsule 100 Mg PO TID Oystercal-D 500 Mg-400 Unit Tb (Calcium Carbonate/Vitamin D3) 1 Each Tablet 1 Each PO BIDWMEALS Nuedexta 20-10 Mg Capsule (Dextromethorphan Hbr/Quinidine) 1 Each Capsule 1 Each PO BID Depakene (Valproate Sodium) 250 Mg/5 Ml Solution 250 Mg PO BID Pravastatin Sodium 40 Mg Tablet 40 Mg PO DAILY Mirtazapine 15 Mg Tablet 15 Mg PO QHS Lisinopril 20 Mg Tablet 20 Mg PO DAILY PRN Furosemide 20 Mg Tablet 20 Mg PO DAILY Clopidogrel (Clopidogrel Bisulfate) 75 Mg Tablet 75 Mg PO DAILY Vitamin D3 (Cholecalciferol (Vitamin D3)) 1,000 Unit Tablet 1,000 Unit PO DAILY Aspir-Low (Aspirin) 81 Mg Tablet. 81 Mg PO DAILY I have reviewed the current psychotropics carefully including drug interactions. Risk benefit ratio favors no change other than as noted in my dictated progress note. Diagnosis: Problems: (1) Major depressive disorder with psychotic features (2) Chronic kidney disease ALESIA INFANTE MD May 13, 2017 18:55
--- NOTE | 2017-05-14 07:39 | PN ---
DATE: 05/11/2017 This is a late entry for 05/11/2017 and covers elements not covered in my initial note of 05/11/2017. I met with the patient in the evening of 05/11/2017, patient slept for 4-3/4 hours previous evening, calm, compliant, somewhat forgetful, smiling as I met with her nurse. REVIEW OF SYSTEMS: Ambulation impaired, in wheelchair. No CV, , pulmonary, eye system symptoms on review. MENTAL STATUS EXAM: Oriented to herself and situation. Speech is coherent, has some latency, fixated on discharge plans. Processed with her. Abstraction fair, computation impaired, language function intact. Mood and affect is improved. IMPRESSION: Unchanged from initial note. PLAN: Continue psychotropics as mentioned in my initial note. MAN Marcus INFANTE MD DR: VELIA/lico JOB#: [id number] / [id number]
--- NOTE | 2017-05-14 07:41 | PN ---
DATE: 05/12/2017 This is a late entry for 05/12/2017 and covers elements not covered in my initial note of 05/12/2017. I met with the patient in the evening of 05/12/2017, staffed at a treatment team meeting with the entire team morning of 05/12/2017. The patient is less obsessive, but repeated to me several times she wants part of her discharge instructions where she was administered medications with putting at the nursing facility and we will do this. I have discussed with nursing staff. REVIEW OF SYSTEMS: Ambulation impaired, in wheelchair. No CV, , pulmonary, eye, ENT system symptoms on review. Reliability fair. MENTAL STATUS EXAM: Oriented to herself and situation. Speech is coherent, abstraction fair, computation impaired, language function intact. Mood and affect showing improvement. LABORATORY DATA: Reviewed. IMPRESSION: Unchanged from initial note. PLAN: Continue current psychotropics. Adjust further as clinically indicated. Valproic acid level therapeutic at 66. ALESIA INFANTE MD DR: VELIA/lico JOB#: [id number] / [id number]
--- NOTE | 2017-05-14 21:42 | DS ---
DATE OF DISCHARGE: 05/13/2017 DISCHARGE SUMMARY/PSYCHIATRIC PROGRESS NOTE This late entry 05/13/2017 covers elements not covered in my initial note of 05/13/2017. REASON FOR ADMISSION: Please refer to the admission history for details. Briefly, the patient is a 61-year-old -[place] female referred to us from [facility] on account of escalating behavior, screaming, crying, refusing medications, worsening symptoms of depression, irritability. She had failed outpatient psychiatric interventions. Behaviors deemed dangerous, unmanageable at the facility resulting in this referral. SIGNIFICANT FINDINGS AND CLINICAL COURSE: Following admission, the patient was seen daily individually by myself, followed medically per Dr. Medina/Dr. Gerard. She was quite anxious, somewhat obsessive, repetitive. She was also easily frustrated consequent to disability from her CVA. Adjustments were made in her psychotropics, she seemed to respond to a combination of Depakene liquid 250 mg b.i.d., Aricept 10 mg a day, Remeron 15 mg at bedtime, Nuedexta 20/10 b.i.d., Seroquel 12.5 mg 0900, 1400, and 1700, Zoloft 75 mg a day, trazodone 50 mg at bedtime, september repeat x 1 p.r.n. for insomnia. Gradually mood appeared to improve. She was less labile, anxious, still somewhat obsessive, repetitive. REVIEW OF SYSTEMS: Ambulation impaired, in wheelchair. No CV, , pulmonary, eye, ENT system symptoms on review. MENTAL STATUS EXAM: Reasonably oriented. Speech coherent, has some latency. Abstraction fair, computation impaired, language function intact, attention span short. Mood and affect remain somewhat withdrawn. LABORATORY DATA: Reviewed. CONDITION AT DISCHARGE: Improved. 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 Rest unchanged from admission. DISCHARGE MEDICATIONS: Please refer to the [facility]. DISCHARGE INSTRUCTIONS: Outpatient psychiatric and medical followup at the skilled nursing. Time for discharge day management greater than 30 minutes. ALESIA INFANTE MD DR: VELIA/lico JOB#: [id number] / [id number]
== END 2017-05-13 13:37 | disposition home or self-care (01) | DRG 885 ==
LOC: ER 17:36 → GEROPSY 20:43
PROVIDERS: ADMIT Psychiatry & Neurology Psychiatry; ATTEND Psychiatry & Neurology Psychiatry
DX: F33.3 Major depressive disorder, recurrent, severe with psychotic symptoms (principal); F01.51 Vascular dementia, unspecified severity, with behavioral disturbance; I69.351 Hemiplegia and hemiparesis following cerebral infarction affecting right dominant side; E78.5 Hyperlipidemia, unspecified; F17.200 Nicotine dependence, unspecified, uncomplicated; F41.9 Anxiety disorder, unspecified; F48.2 Pseudobulbar affect; F63.9 Impulse disorder, unspecified; G47.00 Insomnia, unspecified; G89.4 Chronic pain syndrome; I12.9 Hypertensive chronic kidney disease with stage 1 through stage 4 chronic kidney disease, or unspecified chronic kidney disease; Z96.653 Presence of artificial knee joint, bilateral; E66.9 Obesity, unspecified; G62.9 Polyneuropathy, unspecified; K21.9 Gastro-esophageal reflux disease without esophagitis; N18.9 Chronic kidney disease, unspecified; R47.02 Dysphasia; Z53.20 Procedure and treatment not carried out because of patient's decision for unspecified reasons; Z79.899 Other long term (current) drug therapy; Z91.81 History of falling; Z99.3 Dependence on wheelchair; Z74.01 Bed confinement status; Z68.38 Body mass index [BMI] 38.0-38.9, adult
CPT/HCPCS: 36415; 80053; 80061; 80164; 81001; 82306; 82607; 83036; 83540; 83550; 83735; 84436; 84443; 84480; 85025; 93005; P9612; 99285-25